=== PATIENT | male | born 1955 | race African-American/Black ===

== ENCOUNTER 2017-12-31 14:56 | Outpatient (REF) | payer MEDICARE, MEDICAID, SELFPAY ==
[2017-12-31 21:31] LABS: ALT 28 U/L (12-78); BUN 10 mg/dL (7-18); CREATININE 0.94 mg/dL (0.70-1.30); Calcium 8.7 mg/dL (8.5-10.1); Chloride 103 mmol/L (98-107); Glucose 87 mg/dL (70-100); LDL CHOLESTEROL 39 mg/dL (<100); Sodium 135 mmol/L (136-145)
== END 2017-12-31 15:16 ==
LOC: NCHCN 14:56
PROVIDERS: PCP Internal Medicine; Referring Provider Internal Medicine; Visit Provider Internal Medicine
DX: M18.12 Unilateral primary osteoarthritis of first carpometacarpal joint, left hand (principal); E11.9 Type 2 diabetes mellitus without complications; M54.30 Sciatica, unspecified side; I10 Essential (primary) hypertension
CPT/HCPCS: 80048; 83721; 84460

== ENCOUNTER → 2018-04-01 11:29 | Outpatient (BNVA) | payer MEDICARE, SELFPAY | PROVIDERS: PCP Internal Medicine; Visit Provider Student in an Organized Health Care Education/Training Program | DX: I25.10 Atherosclerotic heart disease of native coronary artery without angina pectoris (principal); E11.51 Type 2 diabetes mellitus with diabetic peripheral angiopathy without gangrene; Z79.84 Long term (current) use of oral hypoglycemic drugs; I10 Essential (primary) hypertension | CPT/HCPCS: 99214 ==

== ENCOUNTER 2018-09-09 15:57 | Emergency (ER) | payer MEDICARE, SELFPAY ==
[2018-09-09 16:08] VITALS: BP 150/80; PULSE 101; RESP 18; TEMP 36.4; O2SAT 94
--- NOTE | 2018-09-09 16:37 | ED.GENADUL_ITS ---
Discharge Plan Disposition Patient Disposition: HOME Condition: Good Discharge Details Chief Complaint: Laceration Clinical Impression: Finger laceration Primary Care Provider: Ty Lynn ED Provider: Amaris Perez Home Meds and New Rx's Prescriptions: Continued Trulicity 0.75 mg/0.5 mL pen injector 0.75 mg SC QWEEK RF: 0 sildenafil [Viagra] 50 MG tablet 50 mg PO PRN PRNRF: 0 nitroglycerin 0.4 MG tablet, sublingual 0.4 mg Sublingual PRN PRNRF: 0 rosuvastatin [Crestor] 10 MG tablet 20 mg PO DAILY Qty: 30 RF: 0 metformin 500 mg tablet 850 mg PO BID RF: 0 amlodipine 10 mg tablet 10 mg PO DAILY RF: 0 glimepiride 4 MG tablet 1 tab PO DAILY RF: 0 aspirin [Aspir-81] 81 MG tablet,delayed release (DR/EC) 81 mg PO DAILY RF: 0 Lyrica 25 mg capsule 40 mg PO DAILY RF: 0 metoprolol tartrate 25 mg Tablet RF: 0 Discharge Instructions Instructions: Finger Laceration (ED), Skin Adhesive Care (ED) Additional Instructions: Keep wound clean, dry, covered. Tylenol and/or Ibuprofen as needed for discomfort. Monitor for signs of infection including redness, warmth, drainage, increased pain, fevers/chills. If these or other new / worsening symptoms arise please seek care urgently once again. Referrals: Ty Lynn [Primary Care Provider] - Discharge Data Discharge Date/Time-TO BE ENTERED AT DEPARTURE: 09/09/18 16:48 Medical Decision Making Patient 63 year old LHD male presenting today for evaluation of laceration to right thumb. Patient has superficial flap laceration sustained from knife while trying to cut head off of fish. UTD on tetanus, patietn reports 5 years ago. No sensation deficits. Does not impede joint, laceration distal to ulnar edge of nail. Wound was washed by nursing staff upon his arrival. Cleansed further by myself with chlorohexidine and sterile saline. No FB or debris noted. discussed closure options. As the edges lay so well approximated, discussed closure with adhesive. Discussed risks/benefits, care of adhesivie. He voices understanding and wishes to proceed. Discussed wound care in depth. Discussed sxs of infection and when to tseek care urgently once again. All questions and concerns were addressed, advised f/u with PCP as needed. HPI General Mode of arrival: ambulatory . Date/Time Provider Initiated Documentation: 09/09/18 16:10 . Limitations to Documentation: no limitations . Information obtained by: patient, family and RN notes reviewed . History of Present Illness 63 year old M presents to the emergency department with the chief complaint of laceration ulnar side right thumb, described as mild, Quality is described as burning, and is localized to the left and upper extremity. Patient reports no radiation. Patient started experiencing this minute(s) and it has been constant. Immobilization improves symptom(s), Movement worsens symptoms . Patient notes no other symptoms.. Patient did receive the following treatments prior to arrival, none Related Data Home Medications Medication Instructions Recorded Confirmed nitroglycerin 0.4 mg SUBLINGUAL PRN PRN 12/13/13 09/09/18 sildenafil [Viagra] 50 mg PO PRN PRN 12/13/13 09/09/18 glimepiride 1 tab PO DAILY 05/30/14 09/09/18 aspirin [Aspir-81] 81 mg PO DAILY 05/25/15 09/09/18 rosuvastatin [Crestor] 20 mg PO DAILY #30 tab 10/09/16 09/09/18 amlodipine 10 mg tablet 10 mg PO DAILY 04/01/18 09/09/18 dulaglutide 0.75 mg/0.5 mL 0.75 mg SC QWEEK 04/01/18 09/09/18 subcutaneous pen injector metformin 500 mg tablet 850 mg PO BID tab-cap 04/01/18 09/09/18 pregabalin 25 mg capsule 40 mg PO DAILY cap 04/01/18 09/09/18 metoprolol tartrate 09/09/18 Allergies Allergy/AdvReac Type Severity Reaction Status Date / Time No Known Allergies Allergy Unverified 04/01/18 11:47 General Stated Complaint: Laceration MIKKI: 4 Review of Systems Constitutional Reports as per HPI, Denies chills and Denies fever(s) Musculoskeletal Reports as per HPI Integumentary/Breasts Reports as per HPI Neurologic Reports as per HPI, Denies sensory deficit and Denies paresthesias PFSH Social History Smoking/Tobacco Use Status: Former Tobacco Use Alcohol Intake: never Drug use: Never Substance use type: does not use Do you feel safe at home: Yes Do you feel safe in your relationship?: Yes Exam Const General: cooperative, healthy appearing, comfortable, no acute distress and well developed Nutritional Appearance: average body habitus and well nourished Orientation: alert and awake Resp Effort & Inspection: normal respiratory effort, able to speak in complete sentences and no respiratory distress Cardio Rate: regular rate Rhythm: regular rhythm Skin Trauma: laceration (superficial flap laceration, well approximated, 8mm long right thumb) Neuro General: alert and awake Cognition: normal cognition Speech: speech normal Gait: normal gait Sensory Exam: no sensory deficits noted Extrem Right upper extremity: abnormal to inspection (superficial laceration as above along ulnar side thumb distal to nail) Psych Appearance: grossly normal and well kempt Mental Status: mental status grossly normal Speech and Movement: speech and movement normal Course Vital Signs Temperature 36.4 C 09/09/18 16:08 Pulse 101 H 09/09/18 16:08 Respiratory Rate 18 09/09/18 16:08 Blood Pressure 150/80 H 09/09/18 16:08 Pulse Oximetry 94 L 09/09/18 16:08 Temperature 36.4 C 09/09/18 16:08 Temperature Source Temporal Artery Scan 09/09/18 16:08 Pulse 101 H 09/09/18 16:08 Respiratory Rate 18 09/09/18 16:08 Blood Pressure 150/80 H 09/09/18 16:08 Pulse Oximetry 94 L 09/09/18 16:08 Oxygen Delivery Method Room Air 09/09/18 16:08 Oxygen Flow Rate 0 09/09/18 16:08 Procedures Laceration Laceration 1: Site: hand Side (If applicable): right Size (cm): 0.8 Description: flap Depth: simple, single layer Pre-repair: wound explored, irrigated extensively and deep structures intact Technique: other (thin layer of adhesive applied)
[2018-09-09 16:51] VITALS: BP 150/80; PULSE 101; RESP 18; O2SAT 94
== END 2018-09-09 16:48 | disposition home or self-care (01) ==
LOC: ER 16:40
PROVIDERS: Emergency Provider Physician Assistant; PCP Internal Medicine
DX: S61.011A Laceration without foreign body of right thumb without damage to nail, initial encounter (principal); W26.0XXA Contact with knife, initial encounter
CPT/HCPCS: 12001

== ENCOUNTER 2018-11-09 18:58 | Outpatient (REF) | payer MEDICARE, MEDICAID, SELFPAY ==
[2018-11-09 19:19] LABS: COMMENT (LAB VIEW ONLY) 50.86 mg/dL; Microalb ug/mg Crea 69.4 ug/mg Cr
== END 2018-11-09 19:18 ==
LOC: NCHCN 18:58
PROVIDERS: PCP Internal Medicine; Visit Provider Internal Medicine
DX: E11.9 Type 2 diabetes mellitus without complications (principal)
CPT/HCPCS: 82043; 82570

== ENCOUNTER 2019-02-01 12:05 | Outpatient (REF) | payer MEDICARE, SELFPAY ==
[2019-02-01 19:41] LABS: ALT 23 U/L (16-63); Anion Gap 11.6 mmol/L (3-11); BUN 13 mg/dL (7-18); CO2 26.4 mmol/L (21.0-32.0); CREATININE 0.93 mg/dL (0.70-1.30); Calcium 9.6 mg/dL (8.5-10.1); Chloride 101 mmol/L (98-107); Glucose 97 mg/dL (70-100); LDL CHOLESTEROL 37 mg/dL (<100); Potassium 4.4 mmol/L (3.5-5.1); Sodium 139 mmol/L (136-145)
== END 2019-02-01 12:25 ==
LOC: NCHCN 12:05
PROVIDERS: PCP Internal Medicine; Visit Provider Internal Medicine
DX: I10 Essential (primary) hypertension (principal); E78.5 Hyperlipidemia, unspecified
CPT/HCPCS: 80048; 83721; 84460

== ENCOUNTER → 2019-04-06 08:37 | Outpatient (BNVA) | payer MEDICARE, SELFPAY | PROVIDERS: PCP Internal Medicine; Referring Provider Internal Medicine; Visit Provider Internal Medicine Cardiovascular Disease | DX: I25.10 Atherosclerotic heart disease of native coronary artery without angina pectoris (principal); R07.9 Chest pain, unspecified; I10 Essential (primary) hypertension; I73.9 Peripheral vascular disease, unspecified | CPT/HCPCS: 99204; 99215 ==

== ENCOUNTER 2019-04-08 00:21 | Outpatient (CLI) | payer MEDICARE, SELFPAY ==
--- NOTE | 2019-04-08 11:05 | DI.NM_ITS ---
APPROVED REPORT Exam: Exercise Treadmill Patient Location: Out-Patient Room/Bed: Stress Nurse: Brittany Sepulveda RN BMI: 32.41 Baseline Rhythm: Sinus Rhythm Indications: Patient reports on and off midsternal chest tightness with tingling of left arm and hand that happens at rest. He may take one to two tabs of nitro SL for the discomfort to go away. He states these episodes may happen one to two times per month. He had 2 stents placed in May. Medical History Medical History: CAD s/p stent, Diabetes, HTN, Hyperlipidemia, Endarterectomy, Femoral /Popliteal byp ass. Cardiac Medications: Aspirin, Amlodipine, Carvedilol, Lisinopril, Rosuvastatin/ Crestor Allergies: No known drug allergies Cardiac Risk Factors: FHX of CAD, HTN, Hyperlipidemia, PVD, Diabetes (insulin) Pretest Chest Pain Characteristics: No chest pain Exercise History: Physically active Physical Disabilities: Hips Lung Sounds: Clear to auscultation Heart Sounds: Regular Stress Test Details Test: Exercise stress testing was performed using a Jimi protocol. Nuclear Acquisition: Stress Tc-99m/Stress Tc-99m 1 day Rest Isotope: Tc-99m Sestamibi. Dose: 14.5 Date: 04/08/2019 Injection Time: 1000 Stress Isotope: Tc-99m Sestamibi. Dose: 44.9 Date: 04/08/2019 Injection Time: 1215 HR Max Heart Rate (APMHR): 158 bpm Resting HR Supine: 78 bpm Target HR (85% APMHR): 134 bpm Resting HR Standin bpm Max HR Achieved: 140 bpm % of APMHR: 88 HR response to stress: Normal HR response to stress BP Resting BP Supine: 138/74 mmHg Resting BP Standin/78 mmHg Max BP: 200/70 mmHg BP response to stress: Normal blood pressure response to stress. ECG Resting ECG: Sinus Rhythm ST Change: none Ectopy: none Stress ECG: Sinus Tachycardia ST Change: none Arrhythmia: none Recovery ECG: Sinus Rhythm Recovery ST Change: none Clinical Reason for Termination: Bilateral Hip Pain Stress Symptoms: None Exercise duration: 7 min34 sec Highest Stage Achieved: Stage 3: 3.4 mph at 14% grade. Exercise capacity: 9.49 METs Functional Capacity: Mildly deminished capacity Stress ECG Conclusion 1. Patient exercised for 7 minutes 34 seconds (9.5 METS) 2. Test was stopped due to bilateral hip pain 3. There is no evidence of ischemia on the ECG portion of this exam Protocol Used: Jimi Protocol Stress Test Summary STAGE Time (mins) Speed (mph) Grade (%) HR BP SYMPTOMS METS Supine 78 138/74 Standing 82 146/78 1 3 1.7 10 109 150/70 4.6 2 6 2.5 12 121 180/98 7 3 9 3.4 14 10.2 4 12 4.2 16 12.9 5 15 5.0 18 17.2 1 min recovery 138 200/70 3 min recovery 95 186/74 6 min recovery 90 160/76 9 min recovery 88 150/80 MPI Conclusion Ejection fraction with stress was normal without wall motion abnormalities. There is no evidence of ischemia on the imaging portion of this exam. This represents a normal SPECT stress test.
[2019-04-08] MEDS: Regadenoson 0.4 MG/5 ML SYR IVP (12:41)
== END 2019-04-08 00:41 ==
PROVIDERS: PCP Internal Medicine; Visit Provider Internal Medicine Cardiovascular Disease
DX: R07.9 Chest pain, unspecified (principal); I25.10 Atherosclerotic heart disease of native coronary artery without angina pectoris; I10 Essential (primary) hypertension; E78.5 Hyperlipidemia, unspecified; E11.9 Type 2 diabetes mellitus without complications; Z79.4 Long term (current) use of insulin; Z82.49 Family history of ischemic heart disease and other diseases of the circulatory system; Z95.5 Presence of coronary angioplasty implant and graft
CPT/HCPCS: 78452; 93016; 93018; 93017; J2785

== ENCOUNTER → 2019-09-14 14:51 | Outpatient (BNVA) | payer MEDICARE, SELFPAY | PROVIDERS: PCP Internal Medicine; Referring Provider Internal Medicine; Visit Provider Internal Medicine Cardiovascular Disease | DX: I25.10 Atherosclerotic heart disease of native coronary artery without angina pectoris (principal); I10 Essential (primary) hypertension; I73.9 Peripheral vascular disease, unspecified | CPT/HCPCS: 99214; 99442 ==

== ENCOUNTER 2019-12-22 16:37 | Outpatient (REF) | payer MEDICARE, SELFPAY | END 2019-12-22 16:57 | LOC: NCHCN 16:37 | PROVIDERS: PCP Internal Medicine; Visit Provider Internal Medicine | DX: E11.9 Type 2 diabetes mellitus without complications (principal) | CPT/HCPCS: 82043; 82570 ==

== ENCOUNTER 2020-03-20 19:08 | Outpatient (REF) | payer MEDICARE, SELFPAY ==
[2020-03-20 20:14] LABS: ALT 27 U/L (16-63); Anion Gap 7.2 mmol/L (3-11); BUN 13 mg/dL (7-18); CO2 27.8 mmol/L (21.0-32.0); CREATININE 0.93 mg/dL (0.70-1.30); Calcium 9.3 mg/dL (8.5-10.1); Chloride 103 mmol/L (98-107); Glucose 84 mg/dL (74-106); LDL CHOLESTEROL 40 mg/dL (<100); Potassium 3.6 mmol/L (3.5-5.1); Sodium 138 mmol/L (136-145)
== END 2020-03-20 19:28 ==
LOC: NCHCN 19:08
PROVIDERS: PCP Internal Medicine; Visit Provider Internal Medicine
DX: E11.9 Type 2 diabetes mellitus without complications (principal); I10 Essential (primary) hypertension; E78.5 Hyperlipidemia, unspecified; Z98.61 Coronary angioplasty status; I25.10 Atherosclerotic heart disease of native coronary artery without angina pectoris
CPT/HCPCS: 80048; 83721; 84460

== ENCOUNTER 2020-11-08 09:21 | Inpatient (IN) | payer OTHER, SELFPAY ==
[2020-11-08] VITALS (94 sets, daily range): BP systolic 95–157; BP diastolic 44–85; PULSE 70–93; RESP 11–27; TEMP 36.3–36.7; O2SAT 88–100
--- NOTE | 2020-11-08 09:15 | RT.EKG_ITS ---
APPROVED REPORT Exam: Resting ECG Reason for Exam: chest pain Patient Location: E HR:75 bpm ECG Measurements Heart Rate 75 AXIS ID 236 P 12 QRSd 110 QRS 32 QT 392 T 32 QTc 439 Conclusion Sinus rhythm...normal P axis, V-rate 60- 99 Prolonged ID interval...ID >220, V-rate 50- 90
--- NOTE | 2020-11-08 09:30 | DI.RAD_ITS ---
Exam(s) XR CHEST 2V PA LATERAL EXAM: XR CHEST 2V PA LATERAL CLINICAL HISTORY: chest pain. TECHNIQUE: 2D digital imaging was performed. COMPARISON: Prior chest x-ray May 2014 FINDINGS: Heart size is normal. The mediastinum is not widened. Lungs are clear. No infiltrates nor pleural effusions. IMPRESSION: No acute pulmonary findings. DATA REPOSITORY: RADIATION DOSE DELIVERED:
[2020-11-08] MEDS: Aspirin 81 MG CHEW 324 MG CH (09:41)
[2020-11-08 09:48] LABS: Abs Immature Grans 0.01 10^3/uL (0.0-0.06); Absolute Basophil Count 0.02 10^3/uL (0.0-0.2); Absolute Eosinophil Count 0.12 10^3/uL (0.0-0.7); Absolute Lymphocyte Count 2.51 10^3/uL (1.2-3.4); Absolute Monocyte Count 0.62 10^3/uL (0.1-0.8); Absolute Neutrophil Count 6.47 10^3/uL (1.2-6.7); Basophils % 0.2; Eosinophils % 1.2; HCT 43.8 % (40.0-50.0); HGB 15.1 g/dL (13.5-17.5); Immature Grans % 0.1; Lymphocytes % 25.7; MCH 29.7 pg (27.0-33.0); MCHC 34.5 % (32.0-36.0); MCV 86.1 fL (80-95); MPV 10.7 fL (8.0-11.0); Monocytes % 6.4; Neutrophils % 66.4; Nucleated RBC 0 %; Platelet Count 273 10^3/uL (130-400); RBC 5.09 10^6/uL (4.36-5.78); RDW 14.5 % (11.8-14.1); WBC 9.75 10^3/uL (4.4-10.8)
--- NOTE | 2020-11-08 09:56 | W.ED.GENAD ---
Discharge Plan Disposition Patient Disposition: [facility] INPATIENT Condition: Serious Discharge Details Clinical Impression: Chest pain Primary Care Provider: Ty Lynn ED Provider: Scar Sifuentes Home Meds and New Rx's Prescriptions: No Action Trulicity 0.75 mg/0.5 mL pen injector 1.5 mg SC QWEEK RF: 0 metformin 850 mg tablet 1,600 mg PO DAILY RF: 0 hydrocodone bitartrate 10 mg capsule, oral only, ER 12hr 10 mg PO TID PRNRF: 0 carvedilol 25 mg tablet 25 mg PO BID Qty: 180 RF: 6 sildenafil [Viagra] 50 MG tablet 100 mg PO PRN PRNRF: 0 nitroglycerin 0.4 MG tablet, sublingual 0.4 mg Sublingual PRN PRNRF: 0 rosuvastatin [Crestor] 10 MG tablet 40 mg PO DAILY Qty: 30 RF: 0 amlodipine 10 mg tablet 10 mg PO DAILY RF: 0 glimepiride 4 MG tablet 1 tab PO DAILY RF: 0 chlorthalidone 25 mg tablet 50 mg PO DAILY RF: 0 losartan 100 mg Tablet 100 mg PO DAILY RF: 0 Levemir FlexTouch U-100 Insuln 100 unit/mL (3 mL) Insulin Pen 90 unit SUBCUT TID RF: 0 Narcan 4 mg/actuation [place],Non-Aerosol 1 spray INTRANASAL PRN PRNRF: 0 Medical Decision Making This is a 65-year-old gentleman, history of CAD, hypertension, hypercholesteremia, diabetes, PAD, PVD, history of coronary stent x2, fem-pop bypass presenting complaining of sharp, severe substernal chest pain rating to his left arm after walking nearly 2 miles this morning around 3 AM on a treadmill. Patient took a total of 3 nitro, pain is now dull 2 out of 10 substernal, no more radiation. Patient has concerning presentation, will give full dose aspirin, obtain cardiac work-up including D-dimer, and give 4 mg IV morphine. Differential includes but not excluded to ACS, angina, PE, dissection, pneumonia, costochondritis, etc. Patient reports that his pain is a 1 out of 10 with IV morphine. Initial laboratory values are unremarkable for obvious emergent process. Awaiting a D-dimer. Upon reevaluation patient reports his pain is now a 4 out of 10, will initiate a nitro drip D-dimer elevated at 867, after discussing concerns of PE versus aneurysm with radiologist, will obtain CTA chest, abdomen, pelvis Patient reports that he is now pain-free with the nitro drip at 5/h. I discussed the case with Dr. Lee, cardiology, at [place]. She recommends continuing the nitro to keep the patient pain-free, does not recommend initiating a heparin bolus or drip. Patient is already on Crestor and a beta-david. Has had a full dose of aspirin. Only additional recommendations at this time is if we are able to get an echo prior to transfer. Department is at capacity currently and cannot accept now, recommends admitting to our facility but they report they should be able to accept care of the patient tomorrow into the care of Dr. Powell Case discussed with our hospitalist team, Dr. Little, made him aware of the CTA of chest, abdomen, pelvis, work-up here in the ER, and anticipated transfer to [place] tomorrow. Patient will be admitted to our ICU on a nitro drip. Patient does report pain is starting to return, nitro drip now at 10/h. Patient once again pain-free. Repeat troponin remains less than 0.05 Medical Records Medical records reviewed: Yes I reviewed the patient's medical records. Imaging Data Radiologic Study: Attestation: I personally reviewed and interpreted this imaging study as follows: Imaging: X-Ray My impression: XR CHEST 2V PA LATERAL CLINICAL HISTORY [ chest pain. ] [] TECHNIQUE 2D digital imaging was performed. COMPARISON [Prior chest x-ray May 2014] [] FINDINGS [Heart size is normal. The mediastinum is not widened.] [Lungs are clear. No infiltrates nor pleural effusions.] [] IMPRESSION [No acute pulmonary findings Radiologist's impression: Laboratory Tests Range/Units 11/08/20 11/08/20 09:29 09:29 WBC (4.4-10.8) 10^3/uL 9.75 RBC (4.36-5.78) 10^6/uL 5.09 Hgb (13.5-17.5) g/dL 15.1 Hct (40.0-50.0) % 43.8 MCV (80-95) fL 86.1 MCH (27.0-33.0) pg 29.7 MCHC (32.0-36.0) % 34.5 RDW (11.8-14.1) % 14.5 H Plt Count (130-400) 10^3/uL 273 MPV (8.0-11.0) fL 10.7 Immature Gran % 0.1 Neutrophils % 66.4 Lymphocytes % 25.7 Monocytes % 6.4 Eosinophils % 1.2 Basophils % 0.2 Nucleated RBC % % 0 Absolute Neutrophils (1.2-6.7) 10^3/uL 6.47 Absolute Lymphocytes (1.2-3.4) 10^3/uL 2.51 Absolute Monocytes (0.1-0.8) 10^3/uL 0.62 Absolute Eosinophils (0.0-0.7) 10^3/uL 0.12 Absolute Basophils (0.0-0.2) 10^3/uL 0.02 Sodium (136-145) mmol/L 137 Potassium (3.5-5.1) mmol/L 3.6 Chloride (98-107) mmol/L 101 Carbon Dioxide (21.0-32.0) mmol/L 29.5 Anion Gap (3-11) mmol/L 6.5 BUN (7-18) mg/dL 16 Creatinine (0.70-1.30) mg/dL 0.8 Estimated GFR/1.73 m2 (mL/min/1.73m2) >= 60.00 Glucose (74-106) mg/dL 118 H Calcium (8.5-10.1) mg/dL 9.0 Magnesium (1.8-2.4) mg/dL 1.9 Total Bilirubin (0.2-1.0) mg/dL 0.6 AST (15-37) U/L 14 L ALT (16-63) U/L 29 Alkaline Phosphatase (46-116) U/L 68 Troponin I (<0.06) ng/mL < 0.05 Total Protein (6.4-8.2) g/dL 8.2 Albumin (3.4-5.0) g/dL 4.3 Radiologic Study #2: Attestation: I personally reviewed and interpreted this imaging study as follows: Imaging: CT Scan Radiologist's impression: CT CHEST PE ABD PELVIS W CLINICAL HISTORY [ pain, elevated dimer. ] [] TECHNIQUE Imaging Protocol: Axial CT angiography was performed with multi-slice acquisition and multi-planar and/or 3D reconstructions. CONTRAST MATERIAL Intravenous: Omnipaque 350 Contrast volume:[125] Oral: [None] COMPARISON [CT CHEST FOR PULMONARY EMBOLUS from 05/18/2016][] FINDINGS CHEST: PULMONARY ARTERIES: [There are no intra-arterial filling defects to suggest the presence of acute pulmonary emboli.] LUNGS: [There is no evidence of pulmonary infarction].[No confluent infiltrates. No ominous nodules in either lung field] [there are no pleural effusions.][No significant focal findings in the trachea and mainstem bronchi.] MEDIASTINUM: [There is no hilar nor mediastinal adenopathy.] [Visualized thyroid unremarkable.][] CARDIAC: [Heart size is normal. There is no pericardial effusion. There is no significant shift of the interventricular septum.][Caliber of the thoracic aorta is within normal limits.] Left vertebral artery is noted to originate is an independent vessel off the aortic arch just proximal to the left subclavian takeoff point. Diameter of the ascending thoracic aorta is within normal limits. There is no evidence of aortic dissection. There is mild fusiform infrarenal abdominal aortic aneurysm with maximum diameter of 2.5 cm.. No high-grade stenosis at the origin of the celiac and superior mesenteric arteries and the inferior mesenteric artery is also noted to be patent. no evidence of significant stenosis in the solitary bilateral renal arteries and both kidneys exhibit normal size. no high-grade stenosis at the aortic bifurcation. there is fusiform dilatation of the distal left common iliac artery which exhibits maximum diameter of 1.9 cm. external iliac arteries are calcified with moderate atherosclerotic involvement. no aneurysms in these vessels. however, there is mild dilatation of the left common femoral artery which exhibits maximum luminal diameter of 1.6 cm at the level of the femoral head. the opposite-right common femoral artery exhibits a luminal diameter of 1.3 cm. IN THE LEFT INFRA INGUINAL REGION THERE IS WHAT APPEARS TO BE A GRAFT. THIS DOES NOT EXHIBIT FLOW THEREIN. PROBABLY OCCLUDED. OSSEOUS: [No significant osseous lesions.][]. ABDOMEN: [There is no ascites.] LIVER: [There are no focal hepatic lesions nor dilatation of intrahepatic ducts.] [] GALLBLADDER/BILIARY: [The gallbladder is surgically absent.] [CBD is not dilated.] PANCREAS: [There is a calcification within the pancreatic head measuring 9 x 10 millimeters. This is either within or immediately adjacent to the CBD at this level. In addition, there is a 2.7 x 1.6 cm hypodensity in the uncinate process of the pancreas which is suspicious for possible neoplasm. There is no encasement of the adjacent superior mesenteric artery and vein. Pancreatic duct is not dilated. There is also suggestion of a 1 cm cystic structure in the extreme pancreatic tail just medial to the spleen. Possibly significant. SPLEEN: [Spleen is not enlarged. There are no intrasplenic lesions.] ADRENALS: [There are no significant adrenal masses.] KIDNEYS:[No cysts evident.] [No calculi nor hydronephrosis. No solid renal masses]. ABDOMINAL AORTA: [As described above there is mild fusiform dilatation of the infrarenal abdominal aorta which exhibits maximum diameter of 2.5 cm.] LYMPH NODES: [There is no retroperitoneal or para-aortic adenopathy.] ABDOMINAL WALL/GI: [No evidence of significant anterior abdominal wall hernia.] [No bowel obstruction.] [There are no obvious ischemic appearing bowel loops.] PELVIS: LYMPH NODES: [There is no intrapelvic nor inguinal adenopathy.] GI: [No evidence of appendicitis.][No evidence of sigmoid diverticulitis.][] URINARY BLADDER: [No calculi nor masses evident] REPRODUCTIVE: [Enlarged prostate gland.. No obturator adenopathy evident.] OSSEOUS: [No significant osseous lesions.] [] IMPRESSION 1. [No evidence of acute pulmonary emboli nor pulmonary infarction.] 2. [No focal pulmonary findings and no pleural effusions nor intrathoracic adenopathy][] 3. [No evidence of aortic dissection. Mild infrarenal abdominal aortic aneurysm with maximum diameter 2.5 cm. 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 No tight stenosis nor dissection at this level nor elsewhere in the aortoiliac segments. Left common femoral artery also exhibits some dilatation, as described above. There is an occluded left fem-distal arterial graft seen on the lower most images] of this study. 4. [Suspicion for possible neoplasm here in the uncinate process of the pancreas. Respiratory motion artifact prevents accurate assessment of this area on this study and this require more dedicated study abdominal-pancreatic protocol.] There is no obvious regional adenopathy and there is no encasement of the adjacent superior mesenteric vessels. [All findings above were discussed by myself with emergency room provider.] Lab Data Lab results reviewed: Yes I reviewed the patient's lab results. Labs: Laboratory Tests Range/Units 11/08/20 11/08/20 11/08/20 09:29 09:29 11:05 WBC (4.4-10.8) 10^3/uL 9.75 RBC (4.36-5.78) 10^6/uL 5.09 Hgb (13.5-17.5) g/dL 15.1 Hct (40.0-50.0) % 43.8 MCV (80-95) fL 86.1 MCH (27.0-33.0) pg 29.7 MCHC (32.0-36.0) % 34.5 RDW (11.8-14.1) % 14.5 H Plt Count (130-400) 10^3/uL 273 MPV (8.0-11.0) fL 10.7 Immature Gran % 0.1 Neutrophils % 66.4 Lymphocytes % 25.7 Monocytes % 6.4 Eosinophils % 1.2 Basophils % 0.2 Nucleated RBC % % 0 Absolute Neutrophils (1.2-6.7) 10^3/uL 6.47 Absolute Lymphocytes (1.2-3.4) 10^3/uL 2.51 Absolute Monocytes (0.1-0.8) 10^3/uL 0.62 Absolute Eosinophils (0.0-0.7) 10^3/uL 0.12 Absolute Basophils (0.0-0.2) 10^3/uL 0.02 PT (9.3-11.0) sec 10.2 INR (0.9-1.1) 1.0 APTT (21.0-27.5) sec 24.7 D-Dimer (<500) ng/mlFEU 867 H Sodium (136-145) mmol/L 137 Potassium (3.5-5.1) mmol/L 3.6 Chloride (98-107) mmol/L 101 Carbon Dioxide (21.0-32.0) mmol/L 29.5 Anion Gap (3-11) mmol/L 6.5 BUN (7-18) mg/dL 16 Creatinine (0.70-1.30) mg/dL 0.8 Estimated GFR/1.73 m2 (mL/min/1.73m2) >= 60.00 Glucose (74-106) mg/dL 118 H Calcium (8.5-10.1) mg/dL 9.0 Magnesium (1.8-2.4) mg/dL 1.9 Total Bilirubin (0.2-1.0) mg/dL 0.6 AST (15-37) U/L 14 L ALT (16-63) U/L 29 Alkaline Phosphatase (46-116) U/L 68 Troponin I (<0.06) ng/mL < 0.05 Total Protein (6.4-8.2) g/dL 8.2 Albumin (3.4-5.0) g/dL 4.3 COVID-19 Source Range/Units 11/08/20 11/08/20 12:38 13:06 WBC (4.4-10.8) 10^3/uL RBC (4.36-5.78) 10^6/uL Hgb (13.5-17.5) g/dL Hct (40.0-50.0) % MCV (80-95) fL MCH (27.0-33.0) pg MCHC (32.0-36.0) % RDW (11.8-14.1) % Plt Count (130-400) 10^3/uL MPV (8.0-11.0) fL Immature Gran % Neutrophils % Lymphocytes % Monocytes % Eosinophils % Basophils % Nucleated RBC % % Absolute Neutrophils (1.2-6.7) 10^3/uL Absolute Lymphocytes (1.2-3.4) 10^3/uL Absolute Monocytes (0.1-0.8) 10^3/uL Absolute Eosinophils (0.0-0.7) 10^3/uL Absolute Basophils (0.0-0.2) 10^3/uL PT (9.3-11.0) sec INR (0.9-1.1) APTT (21.0-27.5) sec D-Dimer (<500) ng/mlFEU Sodium (136-145) mmol/L Potassium (3.5-5.1) mmol/L Chloride (98-107) mmol/L Carbon Dioxide (21.0-32.0) mmol/L Anion Gap (3-11) mmol/L BUN (7-18) mg/dL Creatinine (0.70-1.30) mg/dL Estimated GFR/1.73 m2 (mL/min/1.73m2) Glucose (74-106) mg/dL Calcium (8.5-10.1) mg/dL Magnesium (1.8-2.4) mg/dL Total Bilirubin (0.2-1.0) mg/dL AST (15-37) U/L ALT (16-63) U/L Alkaline Phosphatase (46-116) U/L Troponin I (<0.06) ng/mL < 0.05 Total Protein (6.4-8.2) g/dL Albumin (3.4-5.0) g/dL COVID-19 Source Nasal/Nares ECG Data Attestation: I personally reviewed and interpreted this ECG (s) as follows: Interpretation: Please see official report by Dr. Sarmiento. Sinus rhythm, ventricular rate of 75. Prolonged IL interval, no STEMI HPI General Mode of arrival: ambulatory. Date/Time Provider Initiated Documentation: 11/08/20 09:22. Limitations to Documentation: no limitations. Information obtained by: patient. HPI Narrative: This is a 65-year-old gentleman, past medical history of CAD, diabetes, hyperlipidemia, hypertension, lumbar go with sciatica, PAD, PVD, unstable angina, cardiac stent x2, fem-pop bypass left leg, presenting to the ER for evaluation of substernal chest pain that radiates down his left arm. Patient states that he was walking on his treadmill like he typically does around 3 AM this morning, soon after walking a couple of miles he developed what he describes as 10 out of 10 substernal chest pain that radiated down his entire left arm. Subsequently over the next hour or so he took a total of 3 sublingual nitro and reports now his pain is a dull ache, 1 or 2 out of 10. It no longer radiates down his arm. Patient denies recent illness or trauma. He denies any other concerns or complaints at this time. Denies any other radiation of his discomfort. Denies headache, neck pain, shortness of breath, numbness, tingling, weakness in his legs. Patient states he does not typically take his nitro, has not taken for at least 1 year Related Data Home Medications Medication Instructions Recorded Confirmed nitroglycerin 0.4 mg SUBLINGUAL PRN PRN 12/13/13 11/08/20 sildenafil [Viagra] 100 mg PO PRN PRN 12/13/13 11/08/20 glimepiride 1 tab PO DAILY 05/30/14 11/08/20 rosuvastatin [Crestor] 40 mg PO DAILY #30 tab 10/09/16 11/08/20 amlodipine 10 mg tablet 10 mg PO DAILY 04/01/18 11/08/20 dulaglutide 0.75 mg/0.5 mL 1.5 mg SC QWEEK 04/01/18 11/08/20 subcutaneous pen injector carvedilol 25 mg tablet 25 mg PO BID #180 tab 04/06/19 11/08/20 hydrocodone bitartrate 10 mg 10 mg PO TID PRN cap 04/06/19 11/08/20 capsule, oral only, extended rel 12 hr metformin 850 mg tablet 1,600 mg PO DAILY tab 04/06/19 11/08/20 chlorthalidone 50 mg PO DAILY 11/08/20 11/08/20 insulin detemir U-100 [Levemir 90 unit SUBCUT TID 11/08/20 11/08/20 FlexTouch U-100 Insuln] losartan 100 mg PO DAILY 11/08/20 11/08/20 naloxone [Narcan] 1 spray INTRANASAL PRN PRN 11/08/20 11/08/20 Previous Rx's Medication Instructions Recorded carvedilol 25 mg tablet 25 mg PO BID #180 tab 04/06/19 Allergies Allergy/AdvReac Type Severity Reaction Status Date / Time No Known Allergies Allergy Unverified 09/14/19 14:17 General Stated Complaint: Chest Pain MIKKI: 2 Review of Systems Constitutional Constitutional: Denies fatigue, Denies fever(s), Denies headache(s) and Denies weakness Eyes Eyes: Denies change in vision ENT Ears, Nose, Mouth, and Throat: Denies headache(s) and Denies neck pain Cardiovascular Cardiovascular: Reports chest pain and Denies dyspnea Respiratory Respiratory: Denies cough and Denies dyspnea Gastrointestinal Gastrointestinal: Denies abdominal pain, Denies nausea and Denies vomiting Musculoskeletal Musculoskeletal: Reports back pain (Chronic sciatica) and Denies neck pain Integumentary/Breasts Skin/Breast: Denies rash Neurologic Neurologic: Denies headache(s) and Denies weakness Endocrine Endocrine: Denies fatigue Hematologic/Lymphatic Hematologic/Lymphatic: Denies easy bleeding and Denies easy bruising PFSH Medical History CAD (coronary artery disease) Chest pain Diabetes mellitus Diabetic neuropathy Erectile dysfunction HLD (hyperlipidemia) HTN (hypertension) Lumbago with sciatica, left side PAD (peripheral artery disease) PVD (peripheral vascular disease) Unstable angina Surgical History H/O heart artery stent (~05/2016) MATTHEW to RCA x 2 History of cholecystectomy Hx of endarterectomy (~1998) left common femoral S/P femoral-popliteal bypass surgery S/P right rotator cuff repair Social History Smoking/Tobacco Use Status: Former Tobacco Use Pack-years: 20 Smoking risk assessment performed?: Yes Alcohol Intake: never Drug use: Never Substance use type: does not use What type of physical activity do you participate in: walking and additional Details: walks 2-3 miles every other day Frequency: 3-4 times per week Do you feel safe at home: Yes Do you feel safe in your relationship?: Yes Exam Const General: cooperative and no acute distress Orientation: alert, awake and oriented x3 HENMT Head: normal to inspection, normocephalic and atraumatic Face and sinus: normal facial exam Mouth: moist mucous membranes Eyes General: appearance normal, both eyes and all related structures Conjunctivae: conjunctivae normal Neck Neck: normal visual inspection, full ROM, trachea midline, supple and nontender Resp Effort & Inspection: normal respiratory effort and able to speak in complete sentences Auscultation: clear to auscultation bilaterally Cardio Rate: regular rate Rhythm: regular rhythm GI Palpation: soft, not firm, no guarding, no pulsatile masses and nontender Auscultation: normal bowel sounds Back/Spine/Pelvis Back: No back tenderness Skin General skin exam: no rashes or lesions noted Neuro General: patient alert, patient awake, moves all extremities and no focal motor deficits Cognition: normal cognition Speech: speech normal Gait: normal gait Motor: muscle tone normal throughout Sensory Exam: no sensory deficits noted Extrem General: normal to inspection, full ROM, capillary refill normal, no pedal edema and no calf tenderness Psych Appearance: grossly normal Mental Status: mental status grossly normal Course Vital Signs Vital signs: Vital Signs Temperature 36.7 C 07/21/21 09:26 Pulse 79 11/08/20 09:26 Respiratory Rate 24 11/08/20 09:26 Blood Pressure 157/85 H 11/08/20 09:26 Pulse Oximetry 98 11/08/20 09:26 Temperature 36.7 C 11/08/20 09:26 Temperature Source Temporal Artery Scan 11/08/20 09:26 Pulse 79 11/08/20 09:26 Respiratory Rate 24 11/08/20 09:26 Respiratory Effort Non-Labored 11/08/20 09:29 Blood Pressure 157/85 H 11/08/20 09:26 Blood Pressure Position Sitting 11/08/20 09:26 Pulse Oximetry 98 11/08/20 09:26 Oxygen Delivery Method Room Air 11/08/20 09:26 Oxygen Flow Rate 0 11/08/20 09:26 Pain Level 3 11/08/20 09:26 Lab/Test Results Lab/Test Results: Laboratory Tests Range/Units 11/08/20 09:29 WBC (4.4-10.8) 10^3/uL 9.75 RBC (4.36-5.78) 10^6/uL 5.09 Hgb (13.5-17.5) g/dL 15.1 Hct (40.0-50.0) % 43.8 MCV (80-95) fL 86.1 MCH (27.0-33.0) pg 29.7 MCHC (32.0-36.0) % 34.5 RDW (11.8-14.1) % 14.5 H Plt Count (130-400) 10^3/uL 273 MPV (8.0-11.0) fL 10.7 Immature Gran % 0.1 Neutrophils % 66.4 Lymphocytes % 25.7 Monocytes % 6.4 Eosinophils % 1.2 Basophils % 0.2 Nucleated RBC % % 0 Absolute Neutrophils (1.2-6.7) 10^3/uL 6.47 Absolute Lymphocytes (1.2-3.4) 10^3/uL 2.51 Absolute Monocytes (0.1-0.8) 10^3/uL 0.62 Absolute Eosinophils (0.0-0.7) 10^3/uL 0.12 Absolute Basophils (0.0-0.2) 10^3/uL 0.02 Critical Care Time Critical Care Time Critical Care Time: Yes Total Critical Care Time: 40 Attestation: Upon my evaluation, this patient had a high probability of clinically significant, life-threatening deterioration due to their current medical conditions, which required my direct attention, intervention, and personal management. I have personally provided greater than 30 minutes of critical care time exclusive of the time spend on separately billable procedures. Time includes obtaining a history, examining the patient, pulse oximetry, review of laboratory data, radiology results, discussion with consultants, arranging urgent treatment with development of a management plan, evaluation of patient's response to treatment, and monitoring for potential decompensation. Interventions were performed as documented above.
[2020-11-08 10:10] LABS: ALT 29 U/L (16-63); AST 14 U/L (15-37); Albumin 4.3 g/dL (3.4-5.0); Alkaline Phosphatase 68 U/L (46-116); Anion Gap 6.5 mmol/L (3-11); BUN 16 mg/dL (7-18); Bilirubin, Total 0.6 mg/dL (0.2-1.0); CO2 29.5 mmol/L (21.0-32.0); CREATININE 0.8 mg/dL (0.70-1.30); Chloride 101 mmol/L (98-107); Glucose 118 mg/dL (74-106); Magnesium 1.9 mg/dL (1.8-2.4); Potassium 3.6 mmol/L (3.5-5.1); Sodium 137 mmol/L (136-145); Total Protein 8.2 g/dL (6.4-8.2)
[2020-11-08 10:13] LABS: Troponin I < 0.05 ng/mL (<0.06)
[2020-11-08 11:33] LABS: PTT Activated 24.7 sec (21.0-27.5); Prothrombin Time 10.2 sec (9.3-11.0)
[2020-11-08] MEDS: nitroGLYcerin in D5W 50 MG/250 ML BTL IV (11:49)
[2020-11-08 11:52] LABS: D-Dimer 867 ng/mlFEU (<500)
--- NOTE | 2020-11-08 12:03 | DI.CT_ITS ---
Exam(s) CT CHEST PE ABD PELVIS W EXAM: CT CHEST PE ABD PELVIS W CLINICAL HISTORY: pain, elevated dimer. TECHNIQUE: Imaging Protocol: Axial CT angiography was performed with multi-slice acquisition and m ulti-planar and/or 3D reconstructions. CONTRAST MATERIAL: Intravenous: Omnipaque 350 Contrast volume:125 Oral: None COMPARISON: CT CHEST FOR PULMONARY EMBOLUS from 05/18/2016 FINDINGS: CHEST: PULMONARY ARTERIES: There are no intra-arterial filling defects to suggest the presence of acute pulm onary emboli. LUNGS: There is no evidence of pulmonary infarction.No confluent infiltrates. No ominous nodules in either lung field there are no pleural effusions.No significant focal findings in the trachea and angelita nstem bronchi. MEDIASTINUM: There is no hilar nor mediastinal adenopathy. Visualized thyroid unremarkable. CARDIAC: Heart size is normal. There is no pericardial effusion. There is no significant shift of t he interventricular septum.Caliber of the thoracic aorta is within normal limits. Left vertebral art kvng is noted to originate is an independent vessel off the aortic arch just proximal to the left subc lavian takeoff point. Diameter of the ascending thoracic aorta is within normal limits. There is no evidence of aortic dissection. There is mild fusiform infrarenal abdominal aortic aneurysm with maximum diameter of 2.5 cm.. No hig h-grade stenosis at the origin of the celiac and superior mesenteric arteries and the inferior mesent nathan artery is also noted to be patent. no evidence of significant stenosis in the solitary bilatera l renal arteries and both kidneys exhibit normal size. no high-grade stenosis at the aortic bifurcat ion. there is fusiform dilatation of the distal left common iliac artery which exhibits maximum diam eter of 1.9 cm. external iliac arteries are calcified with moderate atherosclerotic involvement. no aneurysms in these vessels. however, there is mild dilatation of the left common femoral artery whi ch exhibits maximum luminal diameter of 1.6 cm at the level of the femoral head. the opposite-right common femoral artery exhibits a luminal diameter of 1.3 cm. IN THE LEFT INFRA INGUINAL REGION THERE IS WHAT APPEARS TO BE A GRAFT. THIS DOES NOT EXHIBIT FLOW TH EREIN. PROBABLY OCCLUDED. OSSEOUS: No significant osseous lesions.. ABDOMEN: There is no ascites. LIVER: There are no focal hepatic lesions nor dilatation of intrahepatic ducts. GALLBLADDER/BILIARY: The gallbladder is surgically absent. CBD is not dilated. PANCREAS: There is a calcification within the pancreatic head measuring 9 x 10 millimeters. This is either within or immediately adjacent to the CBD at this level. In addition, there is a 2.7 x 1.6 cm hypodensity in the uncinate process of the pancreas which is suspicious for possible neoplasm. Ther e is no encasement of the adjacent superior mesenteric artery and vein. Pancreatic duct is not dilat ed. There is also suggestion of a 1 cm cystic structure in the extreme pancreatic tail just medial t o the spleen. Possibly significant. SPLEEN: Spleen is not enlarged. There are no intrasplenic lesions. ADRENALS: There are no significant adrenal masses. KIDNEYS:No cysts evident. No calculi nor hydronephrosis. No solid renal masses. ABDOMINAL AORTA: As described above there is mild fusiform dilatation of the infrarenal abdominal aor ta which exhibits maximum diameter of 2.5 cm. LYMPH NODES: There is no retroperitoneal or para-aortic adenopathy. ABDOMINAL WALL/GI: No evidence of significant anterior abdominal wall hernia. No bowel obstruction. There are no obvious ischemic appearing bowel loops. PELVIS: LYMPH NODES: There is no intrapelvic nor inguinal adenopathy. GI: No evidence of appendicitis.No evidence of sigmoid diverticulitis. URINARY BLADDER: No calculi nor masses evident REPRODUCTIVE: Enlarged prostate gland.. No obturator adenopathy evident. OSSEOUS: No significant osseous lesions. IMPRESSION: 1. No evidence of acute pulmonary emboli nor pulmonary infarction. 2. No focal pulmonary findings and no pleural effusions nor intrathoracic adenopathy 3. No evidence of aortic dissection. Mild infrarenal abdominal aortic aneurysm with maximum diameter 2.5 cm. 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 No tight stenosis nor dissection at this level nor elsewhere in the aortoiliac segments. Left common femoral artery also exhibits some dilatation, as described above. There is an occluded left fem-distal arterial graft seen on the lower most images of this study. 4. Suspicion for possible neoplasm here in the uncinate process of the pancreas. Respiratory motion artifact prevents accurate assessment of this area on this study and this require more dedicated stud y abdominal-pancreatic protocol. There is no obvious regional adenopathy and there is no encasement of the adjacent superior mesenteric vessels. All findings above were discussed by myself with emergency room provider. RADIATION DOSE DELIVERED: 1,117.98mGy.cm Total DLP DATA REPOSITORY: All CT scans at this facility are submitted to the National Radiology Data Registry (NRDR) Dose Index Registry (DIR) with the [employer] (ACR). RADIATION OPTIMIZATION: All CT scans at this facility use at least one of these dose optimization te chniques: automated exposure control; mA and/or kV adjustment per patient size (includes targeted exa ms where dose is matched to clinical indication); or iterative reconstruction.
[2020-11-08] MEDS: Omnipaque 350 MG/ML 100 ML BTL IJ (12:55)
[2020-11-08] MEDS: Normal Saline - Diluent 50 ML VIAL IV (12:55)
[2020-11-08] MEDS: Omnipaque 350 MG/ML 50 ML BTL IJ (12:56)
[2020-11-08] MEDS: Normal Saline Flush 10 ML SYR IVP (12:56)
[2020-11-08 13:19] LABS: Source Nasal/Nares
[2020-11-08 13:28] LABS: Troponin I < 0.05 ng/mL (<0.06)
[2020-11-08 14:13] LABS: COVID-19 PCR Negative (Negative)
--- NOTE | 2020-11-08 15:47 | HPE_ITS ---
Date of service: 11/08/20 Time of Service: 15:47 Assessment and Plan Assessment and plan (1) CAD (coronary artery disease): Status: Chronic Assessment and plan: Accepted at [facility] when bed available. Cardiology recommends ongoing nitro drip. No heparin. Cont ASA(not on current med list? ASA was to be continued per cardiology note of 08/2020). Cont BB and statin. Telemetry. Qualifiers: Coronary Disease-Associated Artery/Lesion type: [place] artery [place] vs. transplanted heart: [place] heart Associated angina: with unspecified form of angina Qualified Code(s): I25.119 - Atherosclerotic heart disease of [place] coronary artery with unspecified angina pectoris (2) HLD (hyperlipidemia): Status: Acute Assessment and plan: Cont statin. (3) HTN (hypertension): Status: Chronic Assessment and plan: Cont amlodipine, chlothalidone, Losartan. Monitor. (4) PAD (peripheral artery disease): Status: Acute Assessment and plan: Cont ASA, BB, statin (5) Diabetes mellitus: Status: Chronic Assessment and plan: Hold Trulicity (once weekly). Hold metformin and glimepiride. Cont Levemir at a lower dose than home dose that is 90 units SQ TID. Sliding scale insulin correction dosing. Monitor and adjust dosages as necessary Diabetic Diet. History of Present Illness History of Present Illness Chief Complaint: Chest Pain Narrative: This is a 65 yo male with a PMH of CAD (stents x 2) , PAD (fem-pop bypass), DM2, HTN, HLD. He presented to the ED with c/o substernal CP radiating into his left arm while he was on the treadmill. He gets up typically around 2:30 to 3:00 AM and ex ercises on the treadmill. The pain was rated 10/10. He took a total of 3 nitro. His pain improved to a 2/10 and he no longer had left arm pain. In the ED his pain increased again to 4/10 and a nitroglycerin drip initiated. CTA chest performed and was negative for a pulmonary embolism or other acute findings. Cardiology at [facility], Dr. Alfaro consulted by ED doctor. Recommendation of nitro drip, no heparin at this time. Cont asa, Crestor, BB. They will accept her and transfer tomorrow when a bed is available. Review of Systems All systems reviewed & are unremarkable except as noted in HPI and below PFSH Medical History (Updated 11/08/20 @ 16:02 by Zak Little MD) CAD (coronary artery disease) Chest pain Diabetes mellitus Diabetic neuropathy Erectile dysfunction HLD (hyperlipidemia) HTN (hypertension) Lumbago with sciatica, left side PAD (peripheral artery disease) PVD (peripheral vascular disease) Unstable angina Surgical History H/O heart artery stent (~05/2016) MATTHEW to RCA x 2 History of cholecystectomy Hx of endarterectomy (~1998) left common femoral S/P femoral-popliteal bypass surgery S/P right rotator cuff repair Social History Smoking/Tobacco Use Status: Former Tobacco Use Pack-years: 20 Smoking risk assessment performed?: Yes Alcohol Intake: never Drug use: Never Substance use type: does not use What type of physical activity do you participate in: walking and additional Details: walks 2-3 miles every other day Frequency: 3-4 times per week Do you feel safe at home: Yes Do you feel safe in your relationship?: Yes Meds Allergies and Home Medications Allergies Allergy/AdvReac Type Severity Reaction Status Date / Time No Known Allergies Allergy Unverified 09/14/19 14:17 Home Medications Medication Instructions Recorded Confirmed Type nitroglycerin 0.4 mg SUBLINGUAL PRN PRN 12/13/13 11/08/20 History sildenafil [Viagra] 100 mg PO PRN PRN 12/13/13 11/08/20 History glimepiride 1 tab PO DAILY 05/30/14 11/08/20 History rosuvastatin [Crestor] 40 mg PO DAILY #30 tab 10/09/16 11/08/20 History amlodipine 10 mg tablet 10 mg PO DAILY 04/01/18 11/08/20 History dulaglutide 0.75 mg/0.5 mL 1.5 mg SC QWEEK 04/01/18 11/08/20 History subcutaneous pen injector carvedilol 25 mg tablet 25 mg PO BID #180 tab 04/06/19 11/08/20 Rx hydrocodone bitartrate 10 mg 10 mg PO TID PRN cap 04/06/19 11/08/20 History capsule, oral only, extended rel 12 hr metformin 850 mg tablet 1,600 mg PO DAILY tab 04/06/19 11/08/20 History chlorthalidone 50 mg PO DAILY 11/08/20 11/08/20 History insulin detemir U-100 [Levemir 90 unit SUBCUT TID 11/08/20 11/08/20 History FlexTouch U-100 Insuln] losartan 100 mg PO DAILY 11/08/20 11/08/20 History naloxone [Narcan] 1 spray INTRANASAL PRN PRN 11/08/20 11/08/20 History Exam Const General: cooperative and no acute distress Eyes Sclera: sclerae normal Pupils: PERRL Neck Neck: full ROM and no JVD Resp Effort & Inspection: normal respiratory effort Auscultation: clear to auscultation bilaterally Cardio Rate: regular rate Rhythm: regular rhythm Heart Sounds: S1 normal and S2 normal GI Inspection: obesity Palpation: soft and nontender Skin General skin exam: no rashes or lesions noted Extrem General: no pedal edema and no calf tenderness Psych Appearance: grossly normal Mental Status: mental status grossly normal Speech and Movement: speech and movement normal Affect: normal affect Results Labs Result diagrams: 11/08/20 09:29 11/08/20 09:29 Labs: Laboratory Results - last 24 hr 11/08/20 11/08/20 11/08/20 09:29 09:29 11:05 WBC 9.75 RBC 5.09 Hgb 15.1 Hct 43.8 MCV 86.1 MCH 29.7 MCHC 34.5 RDW 14.5 H Plt Count 273 MPV 10.7 Immature Gran % 0.1 Neutrophils % 66.4 Lymphocytes % 25.7 Monocytes % 6.4 Eosinophils % 1.2 Basophils % 0.2 Nucleated RBC % 0 Absolute Neutrophils 6.47 Absolute Lymphocytes 2.51 Absolute Monocytes 0.62 Absolute Eosinophils 0.12 Absolute Basophils 0.02 PT 10.2 INR 1.0 APTT 24.7 D-Dimer 867 H Sodium 137 Potassium 3.6 Chloride 101 Carbon Dioxide 29.5 Anion Gap 6.5 BUN 16 Creatinine 0.8 Estimated GFR/1.73 m2 >= 60.00 Glucose 118 H Calcium 9.0 Magnesium 1.9 Total Bilirubin 0.6 AST 14 L ALT 29 Alkaline Phosphatase 68 Troponin I < 0.05 Total Protein 8.2 Albumin 4.3 COVID-19 Source SARS-CoV-2 (PCR) 11/08/20 11/08/20 12:38 13:06 WBC RBC Hgb Hct MCV MCH MCHC RDW Plt Count MPV Immature Gran % Neutrophils % Lymphocytes % Monocytes % Eosinophils % Basophils % Nucleated RBC % Absolute Neutrophils Absolute Lymphocytes Absolute Monocytes Absolute Eosinophils Absolute Basophils PT INR APTT D-Dimer Sodium Potassium Chloride Carbon Dioxide Anion Gap BUN Creatinine Estimated GFR/1.73 m2 Glucose Calcium Magnesium Total Bilirubin AST ALT Alkaline Phosphatase Troponin I < 0.05 Total Protein Albumin COVID-19 Source Nasal/Nares SARS-CoV-2 (PCR) Negative Last Vital Signs Temp 36.7 C 11/08/20 09:26 Pulse 75 11/08/20 14:46 Resp 18 11/08/20 14:50 BP 128/66 11/08/20 14:46 Pulse Ox 92 11/08/20 14:50
[2020-11-08] MEDS: HYDROcodone 10/Acetaminophen 325 TAB 10 TAB PO (17:34)
[2020-11-08] MEDS: Insulin Aspart 300 UNITS/3 ML PEN SC (17:36)
[2020-11-08] MEDS: Heparin 5,000 UNITS/ML VIAL 5000 UNITS SC (17:37)
[2020-11-08] MEDS: Carvedilol 25 MG TAB PO (19:46)
[2020-11-08] MEDS: Acetaminophen 325 MG TAB 650 MG PO (23:27)
[2020-11-09] VITALS (71 sets, daily range): BP systolic 106–134; BP diastolic 51–78; PULSE 72–84; RESP 10–35; TEMP 36.4–36.5; O2SAT 88–97
[2020-11-09] MEDS: HYDROcodone 10/Acetaminophen 325 TAB PO ×2 (02:17→08:53)
[2020-11-09] MEDS: Heparin 5,000 UNITS/ML VIAL 5000 UNITS SC ×2 (02:21→11:26)
[2020-11-09 07:10] LABS: Anion Gap 9.6 mmol/L (3-11); BUN 17 mg/dL (7-18); CO2 27.4 mmol/L (21.0-32.0); CREATININE 0.8 mg/dL (0.70-1.30); Chloride 102 mmol/L (98-107); Glucose 117 mg/dL (74-106); Potassium 3.8 mmol/L (3.5-5.1); Sodium 139 mmol/L (136-145)
[2020-11-09] MEDS: Aspirin 81 MG CHEW PO (08:44)
[2020-11-09] MEDS: Losartan 50 MG TAB 100 MG PO (08:44)
[2020-11-09] MEDS: Chlorthalidone 25 MG TAB 50 MG PO (08:44)
[2020-11-09] MEDS: Carvedilol 25 MG TAB PO (08:44)
[2020-11-09] MEDS: amLODIPine 10 MG TAB PO (08:45)
--- NOTE | 2020-11-09 08:54 | INITIAL_ITS ---
- If Service Date Differs Date of service: 11/09/20 Time of Service: 08:55 Care Management Initial Assess REASON FOR HOSPITALIZATION:: Chest Pain, coronary artery disease PAST MEDICAL HISTORY/PAST SURGICAL HISTORY:: CAD (coronary artery disease). Chest pain. Diabetes mellitus. Diabetic neuropathy. Erectile dysfunction. HLD (hyperlipidemia). HTN (hypertension). Lumbago with sciatica, left side. PAD (peripheral artery disease). PVD (peripheral vascular disease). Unstable angina. Surgical History . H/O heart artery stent (~05/2016). MATTHEW to RCA x 2. History of cholecystectomy. Hx of endarterectomy (~1998). left common femoral. S/P femoral-popliteal bypass surgery. S/P right rotator cuff repair PREVIOUS FUNCTIONAL STATUS/SOCIAL/FAMILY SUPPORTS:: Rich lives at home with his Merary in [facility]. He is independent at baseline and enjoys being active. Rich particularly likes hunting, fishing and archery. He has 3 adult children (2 sons and 1 daughter) who are all supportive. CURRENT FUNCTIONAL STATUS:: Rich was sitting up in bed, pleasant and easily engaged in converation when CM met with him. Rich talked about his previous heart issues and is anticipating transfer to [facility] [place], he has been accepted to [facility] when a bed becomes available. ADVANCE DIRECTIVES:: Not on file Has patient been provided with info about the portal/API?: Yes Did the patient sign up for the portal?: No CODE STATUS:: Full Code INSURANCE COVERAGE / FINANCIAL ISSUES:: [employer]. Medicare CURRENT HOME/COMMUNITY SERVICES/EQUIPMENT:: No services at this time PRIMARY CARE PHYSICIAN:: Ty Lynn POTENTIAL DISCHARGE NEEDS:: Accepted at [facility] when a bed becomes available. PATIENT/FAMILY EDUCATION NEEDS:: Review of [facility] transfer information as it becomes available, ask me three. ANTICIPATED BARRIERS TO DISCHARGE:: None at this time TRANSPORTATION:: via ambulance to [facility] when a bed becomes available. PLAN:: Transfer to [facility] tomorrow when a bed becomes available
[2020-11-09] MEDS: Polyethylene Glycol 3350 17 GM PACKET PO (10:03)
--- NOTE | 2020-11-09 15:34 | DSE_ITS ---
Date of service: 11/09/20 Time of Service: 15:34 DS: Diagnosis Discharge Diagnosis (1) CAD (coronary artery disease): Status: Chronic Asessment and Plan: This is a 65 yo male with a PMH of CAD (stents x 2) , PAD (fem-pop bypass), DM2, HTN, HLD. He presented to the ED with c/o substernal CP radiating into his left arm while he was on the treadmill. On ASA, BB and statin. Cardiology at [facility] recommended nitro drip, no heparin drip. MCCLURE from nitroglycerin. Accepted at [facility] for further care (2) HLD (hyperlipidemia): Status: Acute Asessment and Plan: On Crestor (3) HTN (hypertension): Status: Chronic Asessment and Plan: On Amlodipine, chlorthalidone, Losartan. (4) PAD (peripheral artery disease): Status: Acute (5) Diabetes mellitus: Status: Chronic Asessment and Plan: His home metformin and glimeperide were held. His Levimir was continued at a lower dose than his home dose. Sliding scale insulin correction dosing intiated. Diabetic diet. Discharge Plan Disposition Patient Disposition: [facility] Condition: Stable Discharge Details Admit Date/Time: 11/08/20 13:35 Admit Provider: Zak Little Attending Provider: Zak Little Primary Care Provider: Ty Lynn Home Meds and New Rx's Prescriptions: No Action Trulicity 0.75 mg/0.5 mL pen injector 1.5 mg SC QWEEK RF: 0 metformin 850 mg tablet 1,600 mg PO DAILY RF: 0 hydrocodone bitartrate 10 mg capsule, oral only, ER 12hr 10 mg PO TID PRNRF: 0 carvedilol 25 mg tablet 25 mg PO BID Qty: 180 RF: 6 sildenafil [Viagra] 50 MG tablet 100 mg PO PRN PRNRF: 0 nitroglycerin 0.4 MG tablet, sublingual 0.4 mg Sublingual PRN PRNRF: 0 rosuvastatin [Crestor] 10 MG tablet 40 mg PO DAILY Qty: 30 RF: 0 amlodipine 10 mg tablet 10 mg PO DAILY RF: 0 glimepiride 4 MG tablet 1 tab PO DAILY RF: 0 chlorthalidone 25 mg tablet 50 mg PO DAILY RF: 0 losartan 100 mg Tablet 100 mg PO DAILY RF: 0 Levemir FlexTouch U-100 Insuln 100 unit/mL (3 mL) Insulin Pen 90 unit SUBCUT QAM RF: 0 Narcan 4 mg/actuation [place],Non-Aerosol 1 spray INTRANASAL PRN PRNRF: 0 Discharge Instructions Activity:: bedrest Diet:: NPO after MN Discharge Orders Discharge Orders: Discharge Order (Routine); Ordered 11/09/20 Ordered By: Zak Little DS: Summary Time Spent with Patient providing and/or coordinating discharge services: Greater than 30 minutes Status at Discharge Functional status at discharge: independent ambulation Overall status at discharge: patient is not back to baseline Mental Status: mental status grossly normal Speech and Movement: speech and movement normal Mood: congruent mood Affect: normal affect Exam Const General: cooperative and no acute distress Eyes Sclera: sclerae normal Pupils: PERRL Neck Neck: full ROM and no JVD Resp Effort & Inspection: normal respiratory effort Auscultation: clear to auscultation bilaterally Cardio Rate: regular rate Rhythm: regular rhythm Heart Sounds: S1 normal and S2 normal GI Inspection: obesity Palpation: soft and nontender Skin General skin exam: no rashes or lesions noted Extrem General: no pedal edema and no calf tenderness Psych Appearance: grossly normal Mental Status: mental status grossly normal Speech and Movement: speech and movement normal Mood: congruent mood Affect: normal affect DS: Data Vitals/I&O Vitals and I&O: Vital Signs Temperature 36.4 C L 11/09/20 12:00 Temperature Source Temporal Artery Scan 11/09/20 12:00 Pulse 72 11/09/20 08:00 Pulse 74 11/09/20 08:01 Respiratory Rate 18 11/09/20 12:00 Respiratory Effort 11/09/20 12:00 Respiratory Depth Normal 11/09/20 12:00 Respiratory Pattern Normal 11/09/20 12:00 Blood Pressure 113/63 11/09/20 08:00 Blood Pressure Mean 75 11/09/20 08:00 Blood Pressure Position Supine 11/09/20 12:00 Pulse Oximetry 97 11/09/20 12:00 Oxygen Delivery Method Room Air 11/09/20 12:00 Oxygen Flow Rate 0 11/09/20 12:00 Pain Level 0 11/09/20 12:00 Intake & Output 07/11/09/20 11/09/20 23:59 11:59 23:59 Intake Total 316.20 / 326.20 275.813 / 635.813 360 / 635.813 Output Total 1850 / 1850 250 / 250 Balance -1533.80 / -1523.80 25.813 / 385.813 360 / 385.813 Weight 103.4 kg 103.8 kg Intake: IV 16.20 / 26.20 35.813 / 35.813 Oral 300 / 300 240 / 600 360 / 600 Output: Urine 1850 / 1850 250 / 250 Other: Urine Color Yellow Yellow Urine Appearance Clear Clear Urine Odor Normal Normal Voiding Methods Urinal Urinal Data Completed and Pending Labs on day of discharge: Labs from last 24 hours 11/09/20 06:15 Sodium 139 Potassium 3.8 Chloride 102 Carbon Dioxide 27.4 Anion Gap 9.6 BUN 17 Creatinine 0.8 Estimated GFR/1.73 m2 >= 60.00 Glucose 117 H Calcium 9.0 PFSH Medical History CAD (coronary artery disease) Chest pain Diabetes mellitus Diabetic neuropathy Erectile dysfunction HLD (hyperlipidemia) HTN (hypertension) Lumbago with sciatica, left side PAD (peripheral artery disease) PVD (peripheral vascular disease) Unstable angina Surgical History H/O heart artery stent (~05/2016) MATTHEW to RCA x 2 History of cholecystectomy Hx of endarterectomy (~1998) left common femoral S/P femoral-popliteal bypass surgery S/P right rotator cuff repair Social History Smoking/Tobacco Use Status: Former Tobacco Use Pack-years: 20 Smoking risk assessment performed?: Yes Alcohol Intake: never Drug use: Never Substance use type: does not use What type of physical activity do you participate in: walking and additional Details: walks 2-3 miles every other day Frequency: 3-4 times per week Do you feel safe at home: Yes Do you feel safe in your relationship?: Yes
== END 2020-11-09 16:35 | disposition short-term general hospital (02) | DRG 303 ==
LOC: ER 13:22 → ICU 15:15
PROVIDERS: Admitting Provider Family Medicine; Emergency Provider Physician Assistant; PCP Internal Medicine; Visit Provider Family Medicine
DX: I25.119 Atherosclerotic heart disease of native coronary artery with unspecified angina pectoris (principal); E11.40 Type 2 diabetes mellitus with diabetic neuropathy, unspecified; I10 Essential (primary) hypertension; E78.5 Hyperlipidemia, unspecified; Z20.822 Contact with and (suspected) exposure to COVID-19; I73.9 Peripheral vascular disease, unspecified; M54.42 Lumbago with sciatica, left side; Z87.891 Personal history of nicotine dependence; Z79.4 Long term (current) use of insulin; Z95.5 Presence of coronary angioplasty implant and graft
CPT/HCPCS: 36415; 71275; 74177; 80048; 80053; 87635; 93005; 96374; 99285; 71046; 83735; 84484; 85025; 85379; 85610; 85730; 93010; 93306; 99223; 99239; J1644; J3490; Q9967

== ENCOUNTER → 2021-06-19 09:04 | Outpatient (BNVA) | payer MEDICARE, SELFPAY | PROVIDERS: PCP Internal Medicine; Referring Provider Internal Medicine; Visit Provider Surgery | DX: L72.9 Follicular cyst of the skin and subcutaneous tissue, unspecified (principal) | CPT/HCPCS: 99202; 99213 ==

== ENCOUNTER → 2021-07-06 08:11 | Outpatient (BNVA) | payer MEDICARE, SELFPAY | PROVIDERS: PCP Internal Medicine; Referring Provider Internal Medicine; Visit Provider Surgery | DX: L72.9 Follicular cyst of the skin and subcutaneous tissue, unspecified (principal) | CPT/HCPCS: 11421 ==

== ENCOUNTER 2021-07-23 02:54 | Outpatient (CLI) | payer OTHER, SELFPAY ==
--- NOTE | 2021-07-23 08:15 | DI.CT_ITS ---
Exam(s) CT HEAD WO/W EXAM: CT HEAD WO/W CLINICAL HISTORY: Occipital scalp cyst, not sebaceous, not lipoma,L72.9. TECHNIQUE: Imaging Protocol: Both noninfused and contrast infused CT scans of the brain were perform ed. IV Contrast Dose =75 cc Axial computed tomography images with coronal and sagittal reformatted images were created and review ed COMPARISON: No exams were available for comparison FINDINGS: There are no skull fractures nor fluid in the visualized paranasal sinuses. There is no evidence of intracranial hemorrhage, mass effect, or shift of midline structures. There are no extra-axial fluid collections. The ventricles are not enlarged or shifted and there is no blo od within the ventricular system nor within the basal cisterns. There are no ring enhancing lesions in the brain and there is no abnormal meningeal enhancement, foca l or diffuse. In the posterior scalp tissue over the central acceptable region there is a 2.2 x 2.1 by 2.0 cm centr ally hypodense enhancing lesion without erosion or invasion of the adjacent skull outer table central hypodense area noted, possibly necrosis or possibly related to recent biopsy. IMPRESSION: No significant intracranial findings. 2.2 x 2.1 x 2.0 cm posterior scalp lesion as described above. This contains a centrally hypodense de nse area which measures 8 x 7 millimeters, either from central necrosis or related possible recent bi opsy.. RADIATION DOSE DELIVERED: 1,904.04mGy.cm Total DLP DATA REPOSITORY: All CT scans at this facility are submitted to the National Radiology Data Registry (NRDR) Dose Index Registry (DIR) with the [employer] (ACR). RADIATION OPTIMIZATION: All CT scans at this facility use at least one of these dose optimization te chniques: automated exposure control; mA and/or kV adjustment per patient size (includes targeted exa ms where dose is matched to clinical indication); or iterative reconstruction.
[2021-07-23] MEDS: Omnipaque 350 MG/ML 100 ML BTL IJ (15:34)
[2021-07-23] MEDS: Normal Saline Flush 10 ML SYR IVP (15:35)
== END 2021-07-23 03:14 ==
LOC: DI 02:54
PROVIDERS: PCP Internal Medicine; Visit Provider Surgery
DX: L72.9 Follicular cyst of the skin and subcutaneous tissue, unspecified (principal)
CPT/HCPCS: 70470; J3490

== ENCOUNTER 2021-07-26 23:16 | Outpatient (REF) | payer MEDICARE, SELFPAY ==
[2021-07-26 20:17] LABS: COMMENT (LAB VIEW ONLY) 26.88 mg/dL; Microalb ug/mg Crea 89.3 ug/mg Cr
== END 2021-07-26 23:17 | disposition home or self-care (01) ==
LOC: NCHCN 23:16
PROVIDERS: PCP Internal Medicine; Visit Provider Internal Medicine
DX: E11.9 Type 2 diabetes mellitus without complications (principal)
CPT/HCPCS: 82043; 82570

== ENCOUNTER → 2021-07-31 13:28 | Outpatient (BNVA) | payer MEDICARE, SELFPAY | PROVIDERS: PCP Internal Medicine; Referring Provider Internal Medicine; Visit Provider Surgery | DX: R22.0 Localized swelling, mass and lump, head (principal) | CPT/HCPCS: 99212 ==

== ENCOUNTER 2021-08-27 01:20 | Outpatient (CLI) | payer MEDICARE, SELFPAY ==
[2021-08-27 12:23] LABS: Source Nasal/Nares
[2021-08-27 17:02] LABS: COVID-19 PCR Negative (Negative)
== END 2021-08-27 01:21 | disposition home or self-care (01) ==
LOC: LBO 01:21
PROVIDERS: PCP Internal Medicine; Visit Provider Surgery
DX: Z20.822 Contact with and (suspected) exposure to COVID-19 (principal); Z01.818 Encounter for other preprocedural examination
CPT/HCPCS: 87635; U0005

== ENCOUNTER 2021-08-29 07:46 | Day surgery (SDC) | payer MEDICARE, SELFPAY ==
--- NOTE | 2021-08-29 06:26 | W.ANESPRE ---
General Info Date of Service Date Performed: 08/29/21 Height: 6 ft Weight: 102.058 kg Body Mass Index (BMI): 30.5 Surgical Procedure: Operation Date: 08/29/21 09:40 Proposed Procedure Side Surgeon p Excision Lesion Posterior Scalp Mavis Grullon MD Meds Allergies and Home Medications Allergies Allergy/AdvReac Type Severity Reaction Status Date / Time No Known Allergies Allergy Verified 08/29/21 08:19 Home Medication Medication Instructions Recorded nitroglycerin 0.4 mg sublingual 0.4 mg SUBLINGUAL PRN PRN 12/13/13 tablet sildenafil 50 mg tablet (Viagra) 100 mg PO PRN PRN 12/13/13 glimepiride 4 mg tablet 1 tab PO DAILY 05/30/14 rosuvastatin 10 mg tablet (Crestor) 40 mg PO DAILY #30 tab 10/09/16 amlodipine 10 mg tablet 10 mg PO DAILY 04/01/18 dulaglutide 0.75 mg/0.5 mL 1.5 mg SC QWEEK 04/01/18 subcutaneous pen injector (Trulicity) carvedilol 25 mg tablet 25 mg PO BID #180 tab 04/06/19 chlorthalidone 25 mg tablet 50 mg PO DAILY 11/08/20 insulin detemir U-100 100 unit/mL 75 - 80 unit SUBCUT QAM 11/08/20 (3 mL) subcutaneous pen (Levemir FlexTouch U-100 Insulin) losartan 100 mg tablet 100 mg PO DAILY 11/08/20 naloxone 4 mg/actuation nasal 1 spray INTRANASAL PRN PRN 11/08/20 spray (Narcan) aspirin 81 mg tablet,delayed 81 mg PO DAILY 04/24/21 release (Adult Low Dose Aspirin) hydrocodone 10 mg-acetaminophen 1 tab PO Q8H PRN 04/24/21 325 mg tablet metformin 850 mg tablet 850 mg PO BID tab 04/24/21 Current Visit Medications: Current Medications Generic Name Dose Route Start Last Admin Trade Name Freq PRN Reason Stop Dose Admin Ringer's Solution 1,000 mls @ 80 mls/hr 08/29/21 06:00 IV 09/27/21 23:59 INFUSION YUNI Cefazolin Sodium/Dextrose 2 gm in 50 mls @ 100 mls/hr 08/29/21 06:00 Ancef Duplex IVPB 09/27/21 23:59 PREOP YUNI IV Miscellaneous Supplies 1 each 08/29/21 06:00 Iv Access IV 09/27/21 23:59 DIRECTED YUNI Sodium Chloride 0 ml 08/29/21 06:00 Normal Saline Flush 10 Ml Syr IV 09/27/21 23:59 PRN PRN Sodium Chloride 0 ml 08/29/21 06:00 Normal Saline 10 Ml Vial IJ 09/27/21 23:59 DIRECTED PRN Sterile Water 0 ml 08/29/21 06:00 Water,Injection,Sterile 10 Ml Vial IJ 09/27/21 23:59 DIRECTED PRN PFSH Active Problems Active Problems: Problem Status Onset Code Diabetes mellitus E11.9 Chest pain R07.9 CAD (coronary artery disease) I25.10 Scalp cyst L72.9 Scalp mass R22.0 Medical History Medical History Cervical radiculopathy Diabetic neuropathy Erectile dysfunction HLD (hyperlipidemia) HTN (hypertension) Lumbago with sciatica, left side PAD (peripheral artery disease) Unstable angina Pt. states it was gas Medical History Comments:: Last seen by cardiology 04/2021 for regular f/u Surgical History Surgical History H/O heart artery stent (~05/2016) MATTHEW to RCA x - F/U with cardiology @ [facility] – [place] 04/2021 History of cholecystectomy Hx of endarterectomy (~1998) left common femoral S/P femoral-popliteal bypass surgery S/P right rotator cuff repair Tobacco Smoking/Tobacco Use Status: Former Tobacco Use Alcohol Alcohol Intake: never Substance Use Substance use: Never Substance use type: does not use Vital Signs and Lab Results Lab Results Blood Type / Crossmatch: No Data to Display Complete Blood Count: No Data to Display Complete Metabolic Panel: No Data to Display Liver Function Panel: No Data to Display Coagulation Panel: No Data to Display Cardiac Panel: No Data to Display Arterial Blood Gas: No Data to Display Venous Blood Gas: No Data to Display Pancreas Panel: No Data to Display Thyroid Panel: No Data to Display Infectious Disease: Coronavirus (COVID-19)(PCR) Negative (Negative) 08/27/21 08:40 08/27/21 Coronavirus 2019 Source Nasal/Nares 08/27/21 08:40 08/27/21 Blood Cultures: No Data to Display Toxicology Panel: No Data to Display Imaging and Studies Imaging and Studies Study information below may be from another EMR and interpreted by another provider. Please see original notes in EMR for more complete details. EKG Summary: 10/2020: sinus. [place] >220 ms Stress Test Summary: 03/2019: 9.5 METS, no evidence of ischemia on ECG. No evidence of ischemia on imaging. Echocardiogram Summary: 10/2020: LVEF 55%, no WMA. normal RvFxn, PAS 19 mmhg. no significant valve disease. Cardiac Catheterization Summary: 01/2021: left circ 50% stenosis. Anesthesia Assessment and Plan Anesthesia History Personal History: No History of Anesthesia Complications Family History: No Family History of Anesthesia Complications Exercise Tolerance Exercise Tolerance: Metabolic Equivalents>4 Pertinent Negatives Pertinent Negatives: No Symptoms of GERD, No Major Cardiovascular Symptoms or Complaints (Stents x 2 2016, cardiac cath cleared 2020, cardiology cleared 04/2021), No Major Pulmonary Symptoms or Complaints and No History of CVA/TIA Cardiac & Pulmonary Exam Cardiac Exam: Normal S1/S2 Heart Sounds Pulmonary Exam: Clear Bilateral Breath Sounds Implantable Cardiac Device Does patient have a Pacemaker or an ICD?: No Airway Exam Known Difficult Airway: No Mallampati Class: 1 Mouth Opening: Normal (> 3cm) Thyromental Distance: Greater than 3 cm Neck Range of Motion: Full ROM Neck Circumference: Thick Teeth Condition: Removable Dentures/Plates Upper and Edentulous ASA Classification ASA Score: ASA 3 Emergency Case?: No NPO Status NPO Status: NPO Clears >2 hours, Solids >8 hours Anesthesia Plan Resuscitation Status: Full Code Anesthesia Technique: General Anesthesia Airway Planned: Natural Airway Monitors Used: Standard Monitors Preoperative Comments:: 66 yo male for posterior scalp lesion. Sig PMHx: CAD with stents 2017 MATTHEW to RCA x 2, DM, cervical radiculopathy, DM (with neuropathy), HTN, PVD. Previous Anes: mac 3 grade 1, easy mask.
--- NOTE | 2021-08-29 06:43 | W.PM.OP ---
Date of service: 08/29/21 Time of Service: 09:13 Operative Note Operative Note DATE OF PROCEDURE: 08/29/21 PRE-OP DIAGNOSIS: Occipital mass POST-OP DIAGNOSIS: same ? ganglion cyst PROCEDURE: Excision of occipital mass SURGEON: Mavis Grullon SUPERVISOR PRESSING DEPARTMENT: [facility] Refer to Anesthesia Record PATHOLOGY: other (occipital mass) COMPLICATIONS: None Patient was transported to: same day Patient's condition: stable Indications: Mr. Otero is a 2 x 3 cm mass in the occipital area of her scalp.? I did attempt to remove this in the office but it felt attached to underlying structures so I aborted and closed the incision.? CT scan was done which showed no ulceration or erosion into the bone.? We will attempt removal again in the operating room this time with some sedation and local.? I have told him that I would not need to make the incision slightly larger in order to be able to take all of it out.? As I am not 100% sure what it is I will also send it to pathology for identification.? Risks, benefits is reviewed with him.? Complications include but are not limited limited to bleeding, infection, recurrence injury to nerves and adverse reaction to the medications.? Questions were entertained and answered to his satisfaction and he wished to proceed.? No guarantees were given or implied Proceed with excision of occipital mass under MAC sedation and local. Findings: cyst filled with clear thick fluid- ? ganglion cyst Procedure Description: After informed consent was obtained the patient was taken to the operating room placed in a prone position. Monitors were applied and a timeout was done. The hair over the palpable occipital mass was clipped and the area was prepped and draped in a sterile surgical fashion. A timeout was done and the patient's name, date of , allergies to medications, procedure to be done, DVT prophylaxis, and antibiotic prophylaxis were reviewed. Fire risk was assessed. The patient was then placed under sedation. Once sedated and comfortable quarter percent bupivacaine was injected into the dermis and subcutaneous tissue over the palpable mass. A 3 cm incision was made with a 15 blade. Cautery was used to go through the dermis down to where a cyst capsule was identified. The capsule was clear. Using iris scissors dissection was sharply done around the mass which went all the way down to the scalp. Using some blunt dissection and sharp dissection I was able to remove the entire cyst. The cyst measured 2 x 2 cm. The cyst was removed from the operating field and placed in formalin for pathology. Some bleeding was noted and this was stopped using cautery. The wound was irrigated. Once there was no more bleeding noted the subcutaneous tissue was reapproximated with 3-0 Vicryl. The skin was closed with dean. The skin was then cleaned and dried. The patient was allowed to wake up and then rolled himself over onto the stretcher. The patient was then taken down to same-day surgery in stable condition. There were no immediate complications. Sponge instrument and needle counts were correct at the end of the case.
--- NOTE | 2021-08-29 06:45 | W.PM.DSUDISC ---
Discharge Plan Disposition Patient Disposition: HOME Condition: Good Discharge Details Reason For Visit: occipital mass Attending Provider: Mavis Grullon Primary Care Provider: Ty Lynn Home Meds and New Rx's Prescriptions: Continued Trulicity 0.75 mg/0.5 mL pen injector 1.5 mg SC QWEEK 0RF carvedilol 25 mg tablet 25 mg PO BID Qty: 180 6RF Rx Instructions: must administer with a meal/food sildenafil [Viagra] 50 MG tablet 100 mg PO PRN PRN0RF nitroglycerin 0.4 MG tablet, sublingual 0.4 mg Sublingual PRN PRN0RF Label Comments: no longer has rosuvastatin [Crestor] 10 MG tablet 40 mg PO DAILY Qty: 30 0RF amlodipine 10 mg tablet 10 mg PO DAILY 0RF metformin 850 mg tablet 850 mg PO BID 0RF hydrocodone-acetaminophen 10-325 mg tablet 1 tab PO Q8H PRN0RF aspirin [Adult Low Dose Aspirin] 81 mg tablet,delayed release (DR/EC) 81 mg PO DAILY 0RF glimepiride 4 MG tablet 1 tab PO DAILY 0RF chlorthalidone 25 mg tablet 50 mg PO DAILY 0RF Label Comments: TAKE 2 TABLETS BY MOUTH DAILY losartan 100 mg Tablet 100 mg PO DAILY 0RF Levemir FlexTouch U-100 Insuln 100 unit/mL (3 mL) Insulin Pen 75 - 80 unit SUBCUT QAM 0RF Rx Instructions: pt takes a varied amount base on am fs. range is usually 60-90 naloxone [Narcan] 4 mg/actuation [place],Non-Aerosol 1 spray INTRANASAL PRN PRN0RF Discharge Instructions Additional Instructions: Activity at Home after surgery: 1. Make sure you walk outside at least 4 times per day 2. You should be able to climb a flight of stairs 3. No driving while in pain or taking pain medications 4. No strenuous activity or heavy lifting for 2 weeks (laparoscopic surgery) or 4 weeks (open surgery) Diet, Nutrition, & wound healin. Avoid alcohol until after you are recovered from your surgery 2. Make sure to eat plenty of lean protein (meat, fish, eggs, cottage cheese, beans) 3. Eat a variety of fruits and vegetables. Eat plenty of high fiber foods to avoid constipation. 4. Drink plenty of liquids to stay hydrated and avoid constipation Pain Medications: 1. Tylenol 650mg every 6 hours as needed and Ibuprofen 600 mg every 6 hours as needed. You may alternate between the 2 medications every 3 hours 2. If a narcotic has been prescribed take as directed only for breakthrough pain For Constipation: 1. Take Milk of Magnesia or MiraLax as needed for constipation Other: 1. You may shower daily. Do not scrub the incisions 2. Do not soak the incisions for 10 days 3. You may alternate ice and heat as needed for pain and swelling Wound Care: 1. Keep the incisions clean and dry Please call our office if you develop: 1. Fevers >101.5 2. Nausea or Vomiting 3. Worsening pain 4. Redness and thick discharge from the wounds If after hours please call the Hospital at and ask to speak to the on-call surgeon Referrals: Mavis Grullon MD [ [facility] STAFF PHYSICIAN] - 09/07/21 8:30 am Activity:: Activity as Tolerated Diet:: As Tolerated Discharge Orders Discharge Orders: Discharge Order (Routine); Ordered 08/29/21 Ordered By: Mavis Grullon
[2021-08-29 08:15] VITALS: BP 132/79; PULSE 78; RESP 16; TEMP 36.7; O2SAT 96
--- NOTE | 2021-08-29 08:32 | W.ANESPRE ---
General Info Date of Service Date Performed: 08/29/21 Height: 6 ft Weight: 103.7 kg Body Mass Index (BMI): 31.0 Surgical Procedure: Operation Date: 08/29/21 09:40 Proposed Procedure Side Surgeon p Excision Lesion Posterior Scalp Mavis Grullon MD Meds Allergies and Home Medications Allergies Allergy/AdvReac Type Severity Reaction Status Date / Time No Known Allergies Allergy Verified 08/29/21 08:19 Home Medication Medication Instructions Recorded nitroglycerin 0.4 mg sublingual 0.4 mg SUBLINGUAL PRN PRN 12/13/13 tablet sildenafil 50 mg tablet (Viagra) 100 mg PO PRN PRN 12/13/13 glimepiride 4 mg tablet 1 tab PO DAILY 05/30/14 rosuvastatin 10 mg tablet (Crestor) 40 mg PO DAILY #30 tab 10/09/16 amlodipine 10 mg tablet 10 mg PO DAILY 04/01/18 dulaglutide 0.75 mg/0.5 mL 1.5 mg SC QWEEK 04/01/18 subcutaneous pen injector (Trulicity) carvedilol 25 mg tablet 25 mg PO BID #180 tab 04/06/19 chlorthalidone 25 mg tablet 50 mg PO DAILY 11/08/20 insulin detemir U-100 100 unit/mL 75 - 80 unit SUBCUT QAM 11/08/20 (3 mL) subcutaneous pen (Levemir FlexTouch U-100 Insulin) losartan 100 mg tablet 100 mg PO DAILY 11/08/20 naloxone 4 mg/actuation nasal 1 spray INTRANASAL PRN PRN 11/08/20 spray (Narcan) aspirin 81 mg tablet,delayed 81 mg PO DAILY 04/24/21 release (Adult Low Dose Aspirin) hydrocodone 10 mg-acetaminophen 1 tab PO Q8H PRN 04/24/21 325 mg tablet metformin 850 mg tablet 850 mg PO BID tab 04/24/21 Current Visit Medications: Current Medications Generic Name Dose Route Start Last Admin Trade Name Freq PRN Reason Stop Dose Admin Ringer's Solution 1,000 mls @ 80 mls/hr 08/29/21 06:00 IV 09/27/21 23:59 INFUSION YUNI Cefazolin Sodium/Dextrose 2 gm in 50 mls @ 100 mls/hr 08/29/21 06:00 Ancef Duplex IVPB 09/27/21 23:59 PREOP YUNI Ondansetron HCl 4 mg/ Sodium 52 mls @ 200 mls/hr 08/29/21 06:46 Chloride IVPB Q6H PRN PRN IV Miscellaneous Supplies 1 each 08/29/21 06:00 Iv Access IV 09/27/21 23:59 DIRECTED YUNI Sodium Chloride 0 ml 08/29/21 06:00 Normal Saline Flush 10 Ml Syr IV 09/27/21 23:59 PRN PRN Sodium Chloride 0 ml 08/29/21 06:00 Normal Saline 10 Ml Vial IJ 09/27/21 23:59 DIRECTED PRN Sterile Water 0 ml 08/29/21 06:00 Water,Injection,Sterile 10 Ml Vial IJ 09/27/21 23:59 DIRECTED PRN Tramadol HCl 50 mg 08/29/21 06:46 Tramadol 50 Mg Tab PO Q6H PRN PRN Pain PFSH Active Problems Active Problems: Problem Status Onset Code Diabetes mellitus E11.9 Chest pain R07.9 CAD (coronary artery disease) I25.10 Scalp cyst L72.9 Scalp mass R22.0 Medical History Medical History Cervical radiculopathy Diabetic neuropathy Erectile dysfunction HLD (hyperlipidemia) HTN (hypertension) Lumbago with sciatica, left side PAD (peripheral artery disease) Unstable angina Pt. states it was gas Medical History Comments:: Last seen by cardiology 04/2021 for regular f/u Surgical History Surgical History H/O heart artery stent (~05/2016) MATTHEW to RCA x - F/U with cardiology @ [facility] – [place] 04/2021 History of cholecystectomy Hx of endarterectomy (~1998) left common femoral S/P femoral-popliteal bypass surgery S/P right rotator cuff repair Tobacco Smoking/Tobacco Use Status: Former Tobacco Use Alcohol Alcohol Intake: never Substance Use Substance use: Never Substance use type: does not use Vital Signs and Lab Results Vital Signs Most Recent Vital Signs in EMR: Most Recent Vital Signs Temp Pulse Resp BP Pulse Ox 36.7 C 78 16 132/79 96 08/29/21 08:15 08/29/21 08:15 08/29/21 08:15 08/29/21 08:15 08/29/21 08:15 Point of Care Results Point of Care Results: Finger Stick Blood Glucose 149 08/29/21 08:05 Lab Results Blood Type / Crossmatch: No Data to Display Complete Blood Count: No Data to Display Complete Metabolic Panel: No Data to Display Liver Function Panel: No Data to Display Coagulation Panel: No Data to Display Cardiac Panel: No Data to Display Arterial Blood Gas: No Data to Display Venous Blood Gas: No Data to Display Pancreas Panel: No Data to Display Thyroid Panel: No Data to Display Infectious Disease: Coronavirus (COVID-19)(PCR) Negative (Negative) 08/27/21 08:40 08/27/21 Coronavirus 2019 Source Nasal/Nares 08/27/21 08:40 08/27/21 Blood Cultures: No Data to Display Toxicology Panel: No Data to Display Imaging and Studies Imaging and Studies Study information below may be from another EMR and interpreted by another provider. Please see original notes in EMR for more complete details. EKG Summary: 10/2020: sinus. [place] >220 ms Stress Test Summary: 03/2019: 9.5 METS, no evidence of ischemia on ECG. No evidence of ischemia on imaging. Echocardiogram Summary: 10/2020: LVEF 55%, no WMA. normal RvFxn, PAS 19 mmhg. no significant valve disease. Cardiac Catheterization Summary: 01/2021: left circ 50% stenosis. Anesthesia Assessment and Plan Anesthesia History Personal History: No History of Anesthesia Complications Family History: No Family History of Anesthesia Complications Exercise Tolerance Exercise Tolerance: Metabolic Equivalents>4 Pertinent Negatives Pertinent Negatives: No Symptoms of GERD, No Major Cardiovascular Symptoms or Complaints (Stents x 2 2016), No Major Pulmonary Symptoms or Complaints and No History of CVA/TIA Cardiac & Pulmonary Exam Cardiac Exam: Normal S1/S2 Heart Sounds Pulmonary Exam: Clear Bilateral Breath Sounds Implantable Cardiac Device Does patient have a Pacemaker or an ICD?: No Airway Exam Known Difficult Airway: No Mallampati Class: 1 Mouth Opening: Normal (> 3cm) Thyromental Distance: Greater than 3 cm Neck Range of Motion: Full ROM Neck Circumference: Thick Teeth Condition: Removable Dentures/Plates Upper and Edentulous ASA Classification ASA Score: ASA 2 Emergency Case?: No NPO Status NPO Status: NPO Clears >2 hours, Solids >8 hours Anesthesia Plan Resuscitation Status: Full Code Anesthesia Technique: General Anesthesia Airway Planned: Natural Airway Monitors Used: Standard Monitors
[2021-08-29 08:49] VITALS: BMI 30.5
[2021-08-29] MEDS: Lactated Ringers 1,000 ML 80 ML IV (09:00)
[2021-08-29] MEDS: ceFAZolin 2 GM/50 ML BAG IVPB (09:05)
--- NOTE | 2021-08-29 09:40 | GANGLION_PTH ---
PATIENT: Rich Otero LOC: [facility] U#:[id number] AGE/SX: 66/M ROOM: RE08/29/[address]: Mavis Grullon MD : [id number] BED: DIS: 08/29/2021 SPEC #: [id number] RECD: 08/29/21 12:50 STATUS: MARTINEZ REAlirio #: [id number] DAVID: 08/29/21 09:[address]: Mavis Grullon DEPT: Surgical Specimen RECD BY: Ema Joel ENTERED: 08/29/21 12:52 SP TYPE: Ganglion OTHR DR: Ty Lynn Tissues: 1 - GANGLION CYST Procedures: GROSS AND MICRO LEVEL 4 IMMUNOPEROXIDASE STAIN Comments: [id number]
[2021-08-29 10:00] VITALS: BP 109/82; PULSE 86; RESP 16; TEMP 36.4; O2SAT 97
[2021-08-29] MEDS: Ketorolac 15 MG/ML VIAL IVP (10:17)
--- NOTE | 2021-08-29 10:26 | W.ANESPOSTOP ---
Postoperative Evaluation Date, Time and Location Date Performed: 08/29/21 Time Performed: 10:26 Patient Location: Day Surgery Unit Vital Signs Most Recent Imported Vital Signs: Most Recent Vital Signs Temp Pulse Resp BP Pulse Ox 36.4 C L 86 16 109/82 97 08/29/21 10:00 08/29/21 10:00 08/29/21 10:00 08/29/21 10:00 08/29/21 10:00 Pain Score Most Recent Pain Score: Most Recent Pain Score Pain Level 3 08/29/21 10:00 Assessment Mental Status: Awake (Alert & Oriented to Patient Baseline) Airway and Respiratory Function: Patent airway with normal (patient baseline) respiratory exam Cardiovascular Function: Hemodynamically Stable Hydration Status: Adequately Hydrated Nausea & Vomiting: No Nausea or Vomiting Pain: Pain is tolerable per patient Peripheral Nerve Block: Patient did not receive a nerve block
[2021-08-29 10:28] VITALS: BP 127/73; PULSE 81; RESP 16; TEMP 36.7; O2SAT 95
== END 2021-08-29 10:54 | disposition home or self-care (01) ==
LOC: SUR 07:47
PROVIDERS: PCP Internal Medicine; Visit Provider Surgery
PROC: (CPT 11423; principal; 2021-08-29 09:30)
DX: C44.49 Other specified malignant neoplasm of skin of scalp and neck (principal); E11.40 Type 2 diabetes mellitus with diabetic neuropathy, unspecified; Z79.4 Long term (current) use of insulin; Z79.84 Long term (current) use of oral hypoglycemic drugs; I25.10 Atherosclerotic heart disease of native coronary artery without angina pectoris; I10 Essential (primary) hypertension; E78.5 Hyperlipidemia, unspecified
CPT/HCPCS: 11423; 12032; 88305; 88304; 88361; J0690; J1885; J2250; J2405; J2704

== ENCOUNTER → 2021-09-07 08:13 | Outpatient (BNVA) | payer MEDICARE, SELFPAY | PROVIDERS: PCP Internal Medicine; Referring Provider Internal Medicine; Visit Provider Surgery | DX: C44.49 Other specified malignant neoplasm of skin of scalp and neck (principal) ==

== ENCOUNTER 2021-12-04 18:59 | Outpatient (REF) | payer MEDICARE, SELFPAY ==
[2021-12-04 20:20] LABS: BUN 16 mg/dL (7-18); CREATININE 0.8 mg/dL (0.70-1.30); Calcium 9.3 mg/dL (8.5-10.1); Chloride 99 mmol/L (98-107); Glucose 164 mg/dL (74-106); Potassium 3.9 mmol/L (3.5-5.1); Sodium 137 mmol/L (136-145)
[2021-12-05 17:58] LABS: PSA, Screening 5.9 ng/mL (<=4.5)
== END 2021-12-04 19:00 | disposition home or self-care (01) ==
LOC: NCHCN 18:59
PROVIDERS: PCP Internal Medicine; Visit Provider Physician Assistant
DX: E11.9 Type 2 diabetes mellitus without complications (principal); R35.0 Frequency of micturition; Z12.5 Encounter for screening for malignant neoplasm of prostate
CPT/HCPCS: 80048; 84153; 87077; 87086; 87186

== ENCOUNTER 2022-02-08 19:12 | Outpatient (REF) | payer MEDICARE, SELFPAY ==
[2022-02-11 12:16] LABS: PSA, Diagnostic 5.4 ng/mL (<=4.5)
== END 2022-02-08 19:13 | disposition home or self-care (01) ==
LOC: NCHCN 19:12
PROVIDERS: PCP Internal Medicine; Visit Provider Physician Assistant
DX: R97.20 Elevated prostate specific antigen [PSA] (principal)
CPT/HCPCS: 84153

== ENCOUNTER 2022-08-19 18:53 | Outpatient (REF) | payer MEDICARE, SELFPAY ==
[2022-08-19 20:51] LABS: COMMENT (LAB VIEW ONLY) 41.86 mg/dL; Microalb ug/mg Crea 115.9 ug/mg Cr
[2022-08-19 21:34] LABS: ALT 35 U/L (16-63); BUN 14 mg/dL (7-18); CREATININE 0.8 mg/dL (0.70-1.30); Calcium 9.7 mg/dL (8.5-10.1); Calculated LDL 23 mg/dL (<100); Chloride 97 mmol/L (98-107); Cholesterol 95 mg/dL (<200); Estimated GFR 97.61 (mL/min/1.73m2); Glucose 113 mg/dL (74-106); HDL Cholesterol 29 mg/dL (40-60); Potassium 3.8 mmol/L (3.5-5.1); Sodium 135 mmol/L (136-145); Triglyceride 218 mg/dL (<150)
[2022-08-19 22:33] LABS: Creatine Kinase 206 U/L (39-308)
[2022-08-20 19:24] LABS: PSA, Screening 6.4 ng/mL (<=4.5)
== END 2022-08-19 18:54 | disposition home or self-care (01) ==
LOC: NCHCN 18:53
PROVIDERS: PCP Internal Medicine; Visit Provider Internal Medicine
DX: I10 Essential (primary) hypertension (principal); E11.9 Type 2 diabetes mellitus without complications; R97.20 Elevated prostate specific antigen [PSA]; Z12.5 Encounter for screening for malignant neoplasm of prostate
CPT/HCPCS: 80048; 80061; 82550; 84153; 82043; 82570; 84460

== ENCOUNTER 2022-10-15 09:30 | Outpatient (CLI) | payer MEDICARE, SELFPAY ==
[2022-10-15 09:48] LABS: HCT 40.2 % (40.0-50.0); HGB 13.8 g/dL (13.5-17.5); MCH 29.2 pg (27.0-33.0); MCHC 34.3 % (32.0-36.0); MCV 85 fL (80-95); Platelet Count 273 10^3/uL (130-400); RBC 4.72 10^6/uL (4.36-5.78); RDW-SD 46.7 fL; WBC 9.64 10^3/uL (4.4-10.8)
[2022-10-15 09:54] LABS: ESR 13 mm/hr (0-20)
[2022-10-15 10:21] LABS: C-Reactive Protein 0.07 mg/dL (0.0-0.3)
[2022-10-17 12:01] LABS: TB Interpretation Negative (Negative)
== END 2022-10-15 09:31 | disposition home or self-care (01) ==
LOC: LBO 09:30
PROVIDERS: PCP Internal Medicine; Visit Provider Internal Medicine
DX: L53.9 Erythematous condition, unspecified (principal)
CPT/HCPCS: 36415; 85027; 85652; 86140; 86480

== ENCOUNTER 2022-10-15 10:12 | Outpatient (CLI) | payer MEDICARE, SELFPAY ==
--- NOTE | 2022-10-15 09:55 | DI.RAD_ITS ---
Exam(s) XR CHEST 2V PA LATERAL EXAM: XR CHEST 2V PA LATERAL CLINICAL HISTORY: ERYTHEMA NODOSUM, L52 TECHNIQUE: 2D digital imaging was performed. COMPARISON: CR XR CHEST 2V PA LATERAL from 11/08/2020 FINDINGS: HEART: Normal size. Aorta: Not dilated. PULMONARY VASCULATURE: Normal. LUNGS: Clear. PLEURAL SPACE: No pleural effusion or pneumothorax. BONE:Prominent osteophytes in the spine. No compression fractures. IMPRESSION: No acute abnormality. DATA REPOSITORY: RADIATION DOSE DELIVERED:
== END 2022-10-15 10:32 ==
LOC: DI 10:13
PROVIDERS: PCP Internal Medicine; Visit Provider Internal Medicine
DX: L52 Erythema nodosum (principal)
CPT/HCPCS: 71046

== ENCOUNTER → 2022-12-05 08:46 | Outpatient (BNVA) | payer MEDICARE, SELFPAY | PROVIDERS: PCP Internal Medicine; Referring Provider Internal Medicine; Visit Provider Nurse Practitioner Gerontology | DX: N40.1 Benign prostatic hyperplasia with lower urinary tract symptoms (principal); R39.89 Other symptoms and signs involving the genitourinary system; R97.20 Elevated prostate specific antigen [PSA]; E11.9 Type 2 diabetes mellitus without complications | CPT/HCPCS: 36415; 51798; 81003; 99214 ==

== ENCOUNTER 2022-12-05 10:00 | Outpatient (REF) | payer MEDICARE, SELFPAY ==
[2022-12-05 18:56] LABS: PSA, Diagnostic 7.3 ng/mL (<=4.5)
== END 2022-12-05 10:01 | disposition home or self-care (01) ==
LOC: LBN 10:00
PROVIDERS: PCP Internal Medicine; Visit Provider Nurse Practitioner Gerontology
DX: N40.1 Benign prostatic hyperplasia with lower urinary tract symptoms (principal); R97.20 Elevated prostate specific antigen [PSA]
CPT/HCPCS: 84153

== ENCOUNTER → 2023-01-29 12:08 | Outpatient (BNVA) | payer MEDICARE, SELFPAY | PROVIDERS: PCP Internal Medicine; Referring Provider Internal Medicine; Visit Provider Nurse Practitioner Gerontology | DX: N40.1 Benign prostatic hyperplasia with lower urinary tract symptoms (principal); R35.1 Nocturia; R97.20 Elevated prostate specific antigen [PSA] | CPT/HCPCS: 99214 ==

== ENCOUNTER → 2023-02-20 08:43 | Outpatient (BNVA) | payer MEDICARE, SELFPAY | PROVIDERS: PCP Internal Medicine; Referring Provider Internal Medicine; Visit Provider Physical Therapy Assistant | DX: Z12.11 Encounter for screening for malignant neoplasm of colon (principal) ==

== ENCOUNTER 2023-03-03 06:07 | Day surgery (SDC) | payer MEDICARE, SELFPAY ==
--- NOTE | 2023-03-02 15:50 | PDOC.DSDIS_ITS ---
Date of service: 03/03/23 Time of Service: 09:32 Discharge Plan Disposition Patient Disposition: Home Condition: Good Discharge Details Reason For Visit: prostate biopsy Attending Provider: Gerald Gama Primary Care Provider: Ty Lynn [place] Meds and New Rx's Prescriptions: Continued levofloxacin 500 mg tablet 500 mg PO DAILY Qty: 3 0RF Rx Instructions: Take 1 tab the day before the procedure, one the day of the procedure, and 1 tab the day after the procedure. carvedilol 25 mg tablet 25 mg PO BID Qty: 180 6RF Rx Instructions: must administer with a meal/food sildenafil [Viagra] 50 MG tablet 100 mg PO PRN PRN nitroglycerin 0.4 MG tablet, sublingual 0.4 mg Sublingual PRN PRN Patient Comments: no longer has rosuvastatin [Crestor] 10 MG tablet 40 mg PO DAILY Qty: 30 amlodipine 10 mg tablet 10 mg PO DAILY metformin 850 mg tablet 850 mg PO BID hydrocodone-acetaminophen 10-325 mg tablet 1 tab PO Q8H PRN aspirin [Adult Low Dose Aspirin] 81 mg tablet,delayed release (DR/EC) 81 mg PO DAILY lorazepam 0.5 mg tablet 0.5 mg PO DAILY PRN (Reason: pre-medication for MRI) Qty: 2 0RF Rx Instructions: Take one tab 30 mins prior to MRI. May repeat right before MRI if needed. 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 hydrocodone-acetaminophen 10-325 mg tablet 1 tab PO TID PRN Rx Instructions: for sciatic pain Ozempic 0.25 mg or 0.5 mg (2 mg/3 mL) pen injector 1 mg subcut QWEEK losartan 100 mg Tablet 100 mg PO DAILY naloxone [Narcan] 4 mg/actuation [place],Non-Aerosol 1 spray INTRANASAL PRN PRN chlorthalidone 25 mg tablet 50 mg PO DAILY Levemir FlexTouch U100 Insulin 100 unit/mL (3 mL) insulin pen 100 unit SUBCUT QAM Rx Instructions: pt takes a varied amount base on am fs. range is usually 60-90 Discharge Instructions Additional Instructions: take your last antibiotic pill tomorrow follow up 1 to 2 weeks for pathology resultscall with fevers, chills, burning with urination Rich, I was able to complete your colonoscopy today without any difficulty. I did find several polyps. 2 of these polyps were quite large. I was able to remove all of the polyps completely. I will have them all tested, and be in touch with the pathology report once it is available. Based on the size of the polyps that I found this time, as well as the number, my inclination is to repeat your colonoscopy in 1 year. But we can make a final decision once the pathology report is available. 1. If tolerated, consume a soft, low fiber diet for 1-2 days. 2[address] Do not drive, drink alcohol, operate machinery, make critical decisions, or do activities that require coordination or balance for 24 hours. 3. Because air was put into your colon during the procedure, expelling air from your rectum (passing gas or farting) is normal. 4. You may not have a bowel movement for 1-3 days because of the colonoscopy prep. This is normal. 5. Go directly to the emergency room if you notice any of the following: Develop chills (warm to touch), or if you have a thermometer and your temperature is above 101 Difficulty breathing or difficultly swallowing Persistent vomiting Severe abdominal pain, other than gas cramps Severe chest pain Black, tarry stools Any bleeding ? exceeding one tablespoon 6. Call your physician if the site where your intravenous was started becomes red, swollen, painful, and warm to touch. 7. Your physician has reviewed your pre-procedure medications. Please continue to take those medications as previously ordered. You will be given specific information/education regarding any changes to your medications before leaving. Activity:: Activity as Tolerated Shower/Bathe:: 24 hours Diet:: As Tolerated Discharge Orders Discharge Orders: Discharge Order (Routine); Ordered 03/03/23 Ordered By: Gerald Gama DS: Diagnosis Discharge Diagnosis (1) Screen for colon cancer: Status: Acute Asessment and Plan: Follow-up on polypectomy results
--- NOTE | 2023-03-02 15:52 | COLE_ITS ---
Date of service: 03/03/23 Time of Service: 09:34 Colonoscopy Report Date of procedure: 03/03/23 Pre-op diagnosis general: screening colonoscopy Post-op diagnosis procedure note: other (Colon and rectal polyps) Procedure: colonoscopy with polypectomy Surgeon: Subhash Otero Anesthesia Type: General:No Airway Estimated blood loss (mL): 15 Pathology: other (Rectal polyps x3, 0.25 cm polyp at 25 cm, 1 cm polyp at 45 cm, 1 cm polyp at 120 cm) Complications: None Disposition: same day Indications: Rich is 67 years old and he needs a screening colonoscopy Prep: Miralax/Dulcolax Procedure Start Time: 08:27 Procedure End Time: 09:12 Retraction Time: 29 Findings: Rectal polyps x3, 0.25 cm polyp, 1 cm polyp at 45 cm, 1 cm polyp at 120 cm Procedure Description: I joined the operating room team after the conclusion of Dr. Gama's ultrasound- guided prostate biopsies. Mr. Otero was already in the left lateral decubitus position. I began by performing an external anorectal exam.? Perineum and skin were normal, as was the anal verge.? There was no evidence of external hemorrhoids.? Next, I performed a digital rectal exam.? This was normal.? Next, I advanced a colonoscope into the rectal vault.? I performed retroflexion.? Ther e were no significant hemorrhoids.? I performed cold forcep polypectomy to remove 3 sessile rectal polyps. Each polyp was less than 0.25 cm. Using insufflation, I then advanced the colonoscope beyond the rectal folds and into the sigmoid colon before advancing towards the cecum.? I passed 2 large polyps. The scope was noted to be in the cecum by identification of the ileocecal valve and appendiceal orifice.? I then began withdrawing the colonoscope using repeated irrigation as necessary for full evaluation of the colonic mucosa. Around 120 cm from the anal verge within the ascending colon with a 1 cm pedunculated polyp. This was removed with energized snare polypectomy. It was too large for suction removal, therefore it was back out along the length of the colon. I returned the camera into the colon, and advanced back up to the polypectomy site. I began retracting the scope once again. Similarly, around 45 cm from the anal verge was another 1 cm pedunculated polyp. This was also removed with energized snare polypectomy. There was no significant bleeding from any of the sites. Around 25 cm from the anal verge I identified another polyp. ?It appeared sessile in character and was less than 0.25 cm. ?I was able to remove this with a cold forcep polypectomy. ?I examined the site, and there was minimal bleeding. ?Once this was completed, I continued to withdraw the scope an d examine the remainder of the colonic mucosa. Once the scope was withdrawn to the level of the rectum, great care was taken to examine portions of the rectal folds.? Finally, the scope was withdrawn and the patient was brought to the same-day surgery recovery unit as the anesthetic wore off. ?The findings and instructions were shared with the patient prior to discharge. Stevenson Bowel Prep Stevenson Bowel Prep Right Colon: 3 Left Colon: 3 Transverse Colon: 3 Total Score: 9
[2023-03-03 06:20] VITALS: BP 111/59; PULSE 74; RESP 16; TEMP 36.4; O2SAT 93
[2023-03-03] MEDS: Lactated Ringers 1,000 ML 80 ML IV (06:52)
--- NOTE | 2023-03-03 06:55 | HPE_ITS ---
Date of service: 03/03/23 Time of Service: 06:55 Assessment and Plan Assessment and plan (1) Rising PSA level: Status: Acute Assessment and plan: For ultrasound guided biopsy of prostate. We discussed the potential risks of urosepsis, blood in the urine, blood from the rectum and blood in the semen. He has taken his antibiotic prep and has 1 additional dose of Levaquin to take tomorrow. History of Present Illness History of Present Illness Chief Complaint: Elevated PSA Narrative: This is a 67-year-old gentleman who has an elevated PSA of 5.4 ng/mL. His multiparameter prostate MRI shows a PI-RADS 5 lesion in the left transition zone. He presents for ultrasound-guided biopsy of the prostate. Review of Systems Narrative: No fevers or chills No vision change or dysphasia Diabetes. No thyroid dysfunction No shortness of breath, cough or hemoptysis No chest pain or palpitations No nausea, vomiting, hepatitis, ulcers, jaundice, diarrhea or constipation No seizures, strokes or peripheral neuropathy No bleeding disorders or anemia No gout PFSH All Active Problems (Updated 03/02/23 @ 15:51 by Subhash Otero MD) Screen for colon cancer (Acute) Rising PSA level (Acute) Diabetes mellitus (Chronic) Chest pain (Acute) CAD (coronary artery disease) (Chronic) Scalp cyst (Acute) Scalp mass (Acute) Medical History BPH loc w urin obs/LUTS Cervical radiculopathy Diabetic neuropathy Erectile dysfunction HLD (hyperlipidemia) HTN (hypertension) Lumbago with sciatica, left side PAD (peripheral artery disease) Unstable angina Pt. states it was gas Surgical History H/O heart artery stent (~05/2016) MATTHEW to RCA x 2-2016- F/U with cardiology @ [facility] [place] 04/2021 History of cholecystectomy Hx of endarterectomy (~1998) left common femoral S/P femoral-popliteal bypass surgery S/P right rotator cuff repair Social History (Updated 02/21/23 @ 14:23 by CLARK Darden) Smoking/Tobacco Use Status: Former Tobacco Use Quit Date: 04/21/85 Pack-years: 20 Smoking risk assessment performed?: Yes Alcohol Intake: never Drug use: Socially Substance use type: marijuana Details: Vape Housing: house Current gender identity: male What type of physical activity do you participate in: walking and additional Details: walks 2-3 miles every other day Frequency: 3-4 times per week Additional Social history: Unable to asses privately. Meds Allergies and Home Medications Allergies Allergy/AdvReac Type Severity Reaction Status Date / Time No Known Allergies Allergy Verified 02/28/23 11:57 Home Medications Medication Instructions Recorded Confirmed Type nitroglycerin 0.4 mg sublingual 0.4 mg sublingual PRN PRN 12/13/13 03/03/23 History tablet sildenafil 50 mg tablet (Viagra) 100 mg PO PRN PRN 12/13/13 03/03/23 History rosuvastatin 10 mg tablet (Crestor) 40 mg PO DAILY #30 tabs 10/09/16 03/03/23 History amlodipine 10 mg tablet 10 mg PO DAILY 04/01/18 03/03/23 History carvedilol 25 mg tablet 25 mg PO BID #180 tabs 04/06/19 03/03/23 Rx losartan 100 mg tablet 100 mg PO DAILY 11/08/20 03/03/23 History naloxone 4 mg/actuation nasal 1 spray intranasal PRN PRN 11/08/20 03/03/23 History spray (Narcan) aspirin 81 mg tablet,delayed 81 mg PO DAILY 04/24/21 02/28/23 History release (Adult Low Dose Aspirin) hydrocodone 10 mg-acetaminophen 1 tab PO Q8H PRN 04/24/21 02/28/23 History 325 mg tablet metformin 850 mg tablet 850 mg PO BID 04/24/21 03/03/23 History lorazepam 0.5 mg tablet 0.5 mg PO DAILY PRN pre-medication 12/09/22 03/03/23 Rx for MRI #2 tabs levofloxacin 500 mg tablet 500 mg PO DAILY #3 tabs 01/29/23 03/03/23 Rx hydrocodone 10 mg-acetaminophen 1 tab PO TID PRN 02/13/23 03/03/23 History 325 mg tablet chlorthalidone 25 mg tablet 50 mg PO DAILY 02/20/23 03/03/23 History insulin detemir U-100 100 unit/mL 100 unit subcut QAM 02/20/23 03/03/23 History (3 mL) subcutaneous pen (Levemir FlexTouch U-100 Insulin) semaglutide 0.25 mg or 0.5 mg (2 1 mg subcut QWEEK 02/20/23 03/03/23 History mg/3 mL) subcutaneous pen injector (Ozempic) Exam Const General: cooperative Neck Neck: supple Resp Effort & Inspection: normal respiratory effort Auscultation: clear to auscultation bilaterally Cardio Rate: regular rate Rhythm: regular rhythm GI Palpation: soft and no masses Neuro General: patient alert, patient awake and patient oriented x3 Results Last Vital Signs Temp 36.4 C L 03/03/23 06:20 Pulse 74 03/03/23 06:20 Resp 16 03/03/23 06:20 BP 111/59 L 03/03/23 06:20 Pulse Ox 93 03/03/23 06:20 Time Spent Time spent with Patient: <40 minutes Time was spent: other
--- NOTE | 2023-03-03 07:00 | ANES.PREOP_ITS ---
General Info Date of Service Date Performed: 03/03/23 Height: 6 ft Weight: 101.2 kg Body Mass Index (BMI): 30.2 Surgical Procedure: Operation Date: 03/03/23 07:40 Proposed Procedure Side Surgeon p Prostate Biopsy/Ultrasound Gerald Gama MD s Colonoscopy Subhash Otero MD Meds Allergies and Home Medications Allergies Allergy/AdvReac Type Severity Reaction Status Date / Time No Known Allergies Allergy Verified 02/28/23 11:57 Home Medication Medication Instructions Recorded nitroglycerin 0.4 mg sublingual 0.4 mg sublingual PRN PRN 12/13/13 tablet sildenafil 50 mg tablet (Viagra) 100 mg PO PRN PRN 12/13/13 rosuvastatin 10 mg tablet (Crestor) 40 mg PO DAILY #30 tabs 10/09/16 amlodipine 10 mg tablet 10 mg PO DAILY 04/01/18 carvedilol 25 mg tablet 25 mg PO BID #180 tabs 04/06/19 losartan 100 mg tablet 100 mg PO DAILY 11/08/20 naloxone 4 mg/actuation nasal 1 spray intranasal PRN PRN 11/08/20 spray (Narcan) aspirin 81 mg tablet,delayed 81 mg PO DAILY 04/24/21 release (Adult Low Dose Aspirin) hydrocodone 10 mg-acetaminophen 1 tab PO Q8H PRN 04/24/21 325 mg tablet metformin 850 mg tablet 850 mg PO BID 04/24/21 lorazepam 0.5 mg tablet 0.5 mg PO DAILY PRN pre-medication 12/09/22 for MRI #2 tabs levofloxacin 500 mg tablet 500 mg PO DAILY #3 tabs 01/29/23 hydrocodone 10 mg-acetaminophen 1 tab PO TID PRN 02/13/23 325 mg tablet chlorthalidone 25 mg tablet 50 mg PO DAILY 02/20/23 insulin detemir U-100 100 unit/mL 100 unit subcut QAM 02/20/23 (3 mL) subcutaneous pen (Levemir FlexTouch U-100 Insulin) semaglutide 0.25 mg or 0.5 mg (2 1 mg subcut QWEEK 02/20/23 mg/3 mL) subcutaneous pen injector (Ozempic) Current Visit Medications: Current Medications Generic Name Dose Route Start Last Admin Trade Name Freq PRN Reason Stop Dose Admin Hyoscyamine Sulfate 0.125 mg 03/02/23 15:54 Hyoscyamine 0.125 Mg Sl/Oral/Chew SL 04/01/23 15:53 DIRECTED PRN Ringer's Solution 1,000 mls @ 80 mls/hr 03/03/23 06:00 03/03/23 06:52 IV 03/03/23 23:59 80 mls/hr INFUSION YUNI Administration IV Miscellaneous Supplies 1 each 03/03/23 06:00 Iv Access IV 03/03/23 23:59 DIRECTED YUNI Ondansetron HCl 4 mg 03/02/23 15:54 Ondansetron 4 Mg/2 Ml Vial IVP 04/01/23 15:53 Q4H PRN PRN Nausea / Vomiting Sodium Chloride 0 ml 03/03/23 06:00 Normal Saline Flush 10 Ml Syr IV 03/03/23 23:59 PRN PRN Sodium Chloride 0 ml 03/03/23 06:00 Normal Saline 10 Ml Vial IJ 03/03/23 23:59 DIRECTED PRN Sterile Water 0 ml 03/03/23 06:00 Water,Injection,Sterile 10 Ml Vial IJ 03/03/23 23:59 DIRECTED PRN PFSH Active Problems Active Problems: Problem Status Onset Code Screen for colon cancer Z12.11 Rising PSA level R97.20 Diabetes mellitus E11.9 Chest pain R07.9 CAD (coronary artery disease) I25.10 Scalp cyst L72.9 Scalp mass R22.0 Medical History Medical History BPH loc w urin obs/LUTS Cervical radiculopathy Diabetic neuropathy Erectile dysfunction HLD (hyperlipidemia) HTN (hypertension) Lumbago with sciatica, left side PAD (peripheral artery disease) Unstable angina Pt. states it was gas Medical History Comments:: Last seen by cardiology 04/2021 for regular f/u Surgical History Surgical History H/O heart artery stent (~05/2016) MATTHEW to RCA x - F/U with cardiology @ [facility] [place] 04/2021 History of cholecystectomy Hx of endarterectomy (~1998) left common femoral S/P femoral-popliteal bypass surgery S/P right rotator cuff repair Tobacco Smoking/Tobacco Use Status: Former Tobacco Use Alcohol Alcohol Intake: never Substance Use Substance use: Socially Substance use type: marijuana Details: Vape Vital Signs and Lab Results Vital Signs Most Recent Vital Signs in EMR: Most Recent Vital Signs Temp Pulse Resp BP Pulse Ox 36.4 C L 74 16 111/59 L 93 03/03/23 06:20 03/03/23 06:20 03/03/23 06:20 03/03/23 06:20 03/03/23 06:20 Lab Results Blood Type / Crossmatch: No Data to Display Complete Blood Count: No Data to Display Complete Metabolic Panel: No Data to Display Liver Function Panel: No Data to Display Coagulation Panel: No Data to Display Cardiac Panel: No Data to Display Arterial Blood Gas: No Data to Display Venous Blood Gas: No Data to Display Pancreas Panel: No Data to Display Thyroid Panel: No Data to Display Infectious Disease: No Data to Display Blood Cultures: No Data to Display Toxicology Panel: No Data to Display Imaging and Studies Imaging and Studies Study information below may be from another EMR and interpreted by another provider. Please see original notes in EMR for more complete details. EKG Summary: 10/2020: sinus. PA >220 ms Stress Test Summary: 03/2019: 9.5 METS, no evidence of ischemia on ECG. No evidence of ischemia on imaging. Echocardiogram Summary: 10/2020: LVEF 55%, no WMA. normal RvFxn, PAS 19 mmhg. no significant valve disease. Cardiac Catheterization Summary: 01/2021: left circ 50% stenosis. Anesthesia Assessment and Plan Anesthesia History Personal History: No History of Anesthesia Complications Family History: No Family History of Anesthesia Complications Exercise Tolerance Exercise Tolerance: Metabolic Equivalents>4 Pertinent Negatives Pertinent Negatives: No Symptoms of GERD, No Major Cardiovascular Symptoms or Complaints and No Major Pulmonary Symptoms or Complaints Cardiac & Pulmonary Exam Cardiac Exam: Normal S1/S2 Heart Sounds Pulmonary Exam: Clear Bilateral Breath Sounds Implantable Cardiac Device Does patient have a Pacemaker or an ICD?: No Airway Exam Known Difficult Airway: No Mallampati Class: 1 Mouth Opening: Normal (> 3cm) Thyromental Distance: Greater than 3 cm Neck Range of Motion: Full ROM Neck Circumference: Thick Teeth Condition: Removable Dentures/Plates Upper and Edentulous ASA Classification ASA Score: ASA 3 Emergency Case?: No NPO Status NPO Status: NPO Clears >2 hours, Solids >8 hours Anesthesia Plan Resuscitation Status: Full Code Anesthesia Technique: General Anesthesia Airway Planned: Natural Airway Monitors Used: Standard Monitors Preoperative Comments:: Gluc check 140, held insulin and metformin this am
[2023-03-03 07:01] VITALS: BMI 30.2
--- NOTE | 2023-03-03 08:23 | PROST_PTH ---
PATIENT: Rich Otero LOC: [facility] U#:[id number] AGE/SX: 67/M ROOM: RE03/03/[address]: Gerald Gama MD : 1955 BED: DIS: 03/03/2023 SPEC #: [id number] RECD: 03/03/23 12:54 STATUS: [facility] #: [id number] DAVID: 03/03/23 08:[address]: Gerald Gama DEPT: Surgical Specimen RECD BY: Ema Joel ENTERED: 03/03/23 12:56 SP TYPE: PROST OTHR DR: Ty Lynn MD Tissues: 1 - PROSTATE NEEDLE BIOPSY 2 - PROSTATE NEEDLE BIOPSY 3 - PROSTATE NEEDLE BIOPSY 4 - PROSTATE NEEDLE BIOPSY 5 - PROSTATE NEEDLE BIOPSY 6 - PROSTATE NEEDLE BIOPSY 7 - PROSTATE NEEDLE BIOPSY 8 - PROSTATE NEEDLE BIOPSY 9 - PROSTATE NEEDLE BIOPSY 10 - PROSTATE NEEDLE BIOPSY 11 - PROSTATE NEEDLE BIOPSY 12 - PROSTATE NEEDLE BIOPSY Procedures: GROSS AND MICRO LEVEL 4 Comments: [id number]
--- NOTE | 2023-03-03 08:30 | BOWEL_PTH ---
PATIENT: Rich Otero LOC: [facility] U#:[id number] AGE/SX: 67/M ROOM: RE03/03/[address]: Gerald Gama MD : 1955 BED: DIS: 03/03/2023 SPEC #: [id number] RECD: 03/03/23 13:04 STATUS: [facility] #: [id number] DAVID: 03/03/23 08:[address]: Subhash Otero DEPT: Surgical Specimen RECD BY: Ema Joel ENTERED: 03/03/23 13:06 SP TYPE: Bowel OTHR DR[facility] T[facility]: 1 - BIOPSY BOWEL 2 - BIOPSY BOWEL 3 - BIOPSY BOWEL 4 - BIOPSY BOWEL Procedures: GROSS AND MICRO LEVEL 4 Comments: [id number]
[2023-03-03] MEDS: Lidocaine 1% Multi-Dose 10 ML VIAL (08:31)
--- NOTE | 2023-03-03 08:34 | W.PM.DSUDISC ---
Date of service: 03/03/23 Time of Service: 08:34 Discharge Plan Disposition Patient Disposition: Home Condition: Good Discharge Details Reason For Visit: prostate biopsy Attending Provider: Gerald Gama Primary Care Provider: Ty Lynn Chatsworth Meds and New Rx's Prescriptions: No Action levofloxacin 500 mg tablet 500 mg PO DAILY Qty: 3 0RF Rx Instructions: Take 1 tab the day before the procedure, one the day of the procedure, and 1 tab the day after the procedure. carvedilol 25 mg tablet 25 mg PO BID Qty: 180 6RF Rx Instructions: must administer with a meal/food sildenafil [Viagra] 50 MG tablet 100 mg PO PRN PRN nitroglycerin 0.4 MG tablet, sublingual 0.4 mg Sublingual PRN PRN Patient Comments: no longer has rosuvastatin [Crestor] 10 MG tablet 40 mg PO DAILY Qty: 30 amlodipine 10 mg tablet 10 mg PO DAILY metformin 850 mg tablet 850 mg PO BID hydrocodone-acetaminophen 10-325 mg tablet 1 tab PO Q8H PRN aspirin [Adult Low Dose Aspirin] 81 mg tablet,delayed release (DR/EC) 81 mg PO DAILY lorazepam 0.5 mg tablet 0.5 mg PO DAILY PRN (Reason: pre-medication for MRI) Qty: 2 0RF Rx Instructions: Take one tab 30 mins prior to MRI. May repeat right before MRI if needed. Must have dedicated local truck driver. hydrocodone-acetaminophen 10-325 mg tablet 1 tab PO TID PRN Rx Instructions: for sciatic pain Ozempic 0.25 mg or 0.5 mg (2 mg/3 mL) pen injector 1 mg subcut QWEEK losartan 100 mg Tablet 100 mg PO DAILY naloxone [Narcan] 4 mg/actuation Arnett,Non-Aerosol 1 spray INTRANASAL PRN PRN chlorthalidone 25 mg tablet 50 mg PO DAILY Levemir FlexTouch U100 Insulin 100 unit/mL (3 mL) insulin pen 100 unit SUBCUT QAM Rx Instructions: pt takes a varied amount base on am fs. range is usually 60-90 Discharge Instructions Additional Instructions: take your last antibiotic pill tomorrow follow up 1 to 2 weeks for pathology resultscall with fevers, chills, burning with urination Activity:: Activity as Tolerated Shower/Bathe:: 24 hours Diet:: As Tolerated Discharge Orders Discharge Orders: Discharge Order (Routine); Ordered 03/03/23 Ordered By: Gerald Gama DS: Diagnosis Discharge Diagnosis (1) Rising PSA level: Status: Acute
--- NOTE | 2023-03-03 08:39 | W.PM.OP ---
Date of service: 03/03/23 Time of Service: 08:39 Operative Note Operative Note DATE OF PROCEDURE: 03/03/23 PRE-OP DIAGNOSIS: elevated psa POST-OP DIAGNOSIS: same abnormal prostate MRI PROCEDURE: transrectal ultrasound guided biopsies of prostate SURGEON: Gerald Gama ANESTHESIA TYPE: Local By Surgeon and General:No Airway Refer to Anesthesia Record ESTIMATED BLOOD LOSS: 5 PATHOLOGY: other (12 laterally directed biopsies of prostate) COMPLICATIONS: None Patient was transported to: no change Patient's condition: stable Indications: This is a 67-year-old gentleman who has a history of an elevated PSA of 7.3 ng/mL. He had an abnormal prostate ultrasound which showed a PI-RADS 5 lesion in the left transition zone. He presents for ultrasound-guided biopsy of the prostate Findings: prostate volume 40 cc Procedure Description: The patient was given an antibiotic and mechanical bowel prep. He was brought to the OR on 03/03/2023. He was given general anesthesia without intubation and placed in the left lateral position. Transrectal imaging of the prostate was performed using a variable megahertz transducer. The prostate was imaged in transverse and longitudinal planes. The prostatic volume was calculated at 40 cc. The transition zone was slightly enlarged and contained multiple calcifications. No specific hypoechoic areas were seen in the peripheral zone. A periprosthetic nerve block was performed using 1% lidocaine. A total of 12 laterally directed biopsies were taken, labeled and sent to pathology for permanent section. The patient tolerated the procedure. He remained in the operating room for colonoscopy.
[2023-03-03 09:25] VITALS: BP 84/58; PULSE 65; RESP 16; TEMP 36; O2SAT 99
[2023-03-03 09:52] VITALS: BP 105/50; PULSE 70; RESP 16; TEMP 36.2; O2SAT 100
--- NOTE | 2023-03-03 10:11 | W.ANESPOSTOP ---
Postoperative Evaluation Date, Time and Location Date Performed: 03/03/23 Time Performed: 09:55 Patient Location: Day Surgery Unit Vital Signs Most Recent Imported Vital Signs: Most Recent Vital Signs Temp Pulse Resp BP Pulse Ox 36.2 C L 70 16 105/50 L 100 03/03/23 09:52 03/03/23 09:52 03/03/23 09:52 03/03/23 09:52 03/03/23 09:52 Pain Score Most Recent Pain Score: Most Recent Pain Score Pain Level 0 03/03/23 09:52 Assessment Mental Status: Awake (Alert & Oriented to Patient Baseline) Airway and Respiratory Function: Patent airway with normal (patient baseline) respiratory exam Cardiovascular Function: Hemodynamically Stable Hydration Status: Adequately Hydrated Nausea & Vomiting: No Nausea or Vomiting Pain: Pain is tolerable per patient (bowel cramping) Peripheral Nerve Block: Patient did not receive a nerve block
== END 2023-03-03 10:40 | disposition home or self-care (01) ==
PROVIDERS: Surgery; PCP Internal Medicine; Visit Provider Urology
PROC: (CPT 55700; principal; 2023-03-03 07:30)
PROC: 0DJD8ZZ Inspection of Lower Intestinal Tract, Via Natural or Artificial Opening Endoscopic (ICD-10-PCS; CPT 45378; 2023-03-03 07:30)
DX: C61 Malignant neoplasm of prostate (principal); E11.42 Type 2 diabetes mellitus with diabetic polyneuropathy; I25.10 Atherosclerotic heart disease of native coronary artery without angina pectoris; I10 Essential (primary) hypertension; Z12.11 Encounter for screening for malignant neoplasm of colon; D12.3 Benign neoplasm of transverse colon; D37.4 Neoplasm of uncertain behavior of colon
CPT/HCPCS: 55700; 45380; 45385; 76872; 88305; J2250; J2405

== ENCOUNTER 2023-03-03 10:03 | Day surgery (SDC) | payer MEDICARE, SELFPAY | END 2023-03-03 10:04 | disposition home or self-care (01) | LOC: SUR 05-05 10:03 | PROVIDERS: PCP Internal Medicine; Visit Provider Surgery | DX: Z53.9 Procedure and treatment not carried out, unspecified reason (principal) ==

== ENCOUNTER 2023-03-03 14:00 | Outpatient (CLI) | payer MEDICARE, SELFPAY | END 2023-03-03 14:01 | LOC: ORDER INT 05-02 14:00 | PROVIDERS: PCP Internal Medicine; Visit Provider Urology | DX: N40.1 Benign prostatic hyperplasia with lower urinary tract symptoms (principal); R97.20 Elevated prostate specific antigen [PSA] ==

== ENCOUNTER → 2023-03-25 10:50 | Outpatient (BNVA) | payer MEDICARE, SELFPAY | PROVIDERS: PCP Internal Medicine; Referring Provider Internal Medicine; Visit Provider Urology | DX: C61 Malignant neoplasm of prostate (principal) | CPT/HCPCS: 99443 ==

== ENCOUNTER → 2023-04-01 02:21 | Outpatient (CLI) | payer MEDICARE, SELFPAY ==
--- NOTE | 2023-04-01 07:45 | DI.NM_ITS ---
Exam(s) NM BONE SCAN WHOLE BODY GRP EXAM: ND BONE SCAN WHOLE BODY GRP CLINICAL HISTORY: baseline,PROSTATE CA,C61. TECHNIQUE: Injected Dose: 25 mCi Tc-99m MDP Delayed Images: 3 hours. COMPARISON: CT CT CHEST PE ABD PELVIS W from 11/08/2020 FINDINGS: Symmetric axial uptake. Bilateral renal excretion is identified. There is increased radiotracer uptak e seen in the L2 and L4 vertebral bodies. There is also increased radiotracer seen in the lower cerv ical spine probably C7. There is a single focus seen at the costochondral junction of the right 8th rib. The pelvis is obscured by the distended urinary bladder. The patient was unable to completely void. Probable degenerative uptake is seen in the shoulders, hands, knees and feet bilaterally. IMPRESSION: 1. Increased radiotracer uptake seen in the lower cervical and lumbar spine. Metastatic disease justine ot be excluded in these areas. CT and/or MRI correlation is recommended. 2. Limited evaluation of the pelvis due to radiotracer in the distended urinary bladder. DATA REPOSITORY:
== END ==
LOC: DI 02:21
PROVIDERS: PCP Internal Medicine; Visit Provider Urology
DX: C61 Malignant neoplasm of prostate (principal); R93.7 Abnormal findings on diagnostic imaging of other parts of musculoskeletal system
CPT/HCPCS: 78306

== ENCOUNTER → 2023-04-08 10:53 | Outpatient (BNVA) | payer MEDICARE, SELFPAY | PROVIDERS: PCP Internal Medicine; Referring Provider Internal Medicine; Visit Provider Urology | DX: C61 Malignant neoplasm of prostate (principal) | CPT/HCPCS: 99443 ==

== ENCOUNTER 2023-05-01 11:39 | Outpatient (CLI) | payer MEDICARE, SELFPAY ==
[2023-05-03 10:16] LABS: PSA, Ultrasensitive 8.6 ng/mL (<= 4.5)
== END 2023-05-01 11:40 | disposition home or self-care (01) ==
LOC: LBO 11:52
PROVIDERS: PCP Internal Medicine; Visit Provider Radiology Radiation Oncology
DX: C61 Malignant neoplasm of prostate (principal)
CPT/HCPCS: 36415; 84153

== ENCOUNTER 2023-08-18 17:39 | Outpatient (CLI) | payer MEDICARE, SELFPAY ==
[2023-08-19 17:35] LABS: PSA, Ultrasensitive 8.6 ng/mL (<= 4.5)
== END 2023-08-18 17:40 | disposition home or self-care (01) ==
LOC: LBO 17:46
PROVIDERS: PCP Internal Medicine; Visit Provider Urology
DX: R97.20 Elevated prostate specific antigen [PSA] (principal)
CPT/HCPCS: 36415; 84153

== ENCOUNTER → 2023-09-11 04:28 | Outpatient (CLI) | payer MEDICARE, SELFPAY ==
[2023-09-11] MEDS: Barium Sulfate 2% W/V-Berry Smoothie 450 ML BTL PO ×2 (09:27→09:28)
[2023-09-11 09:37] LABS: Estimated GFR 82.49 (mL/min/1.73m2)
[2023-09-11] MEDS: Normal Saline - Diluent 50 ML VIAL IJ (11:22)
[2023-09-11] MEDS: Omnipaque 350 MG/ML 500 ML BTL-Imaging package IJ (11:25)
--- NOTE | 2023-09-11 11:25 | DI.CT_ITS ---
Exam(s) CT ABD WO/ABD PEL W EXAM: CT ABD WO/ABD PEL W CLINICAL HISTORY: DISORDER OF PANCREAS,K86.9. TECHNIQUE: Imaging Protocol: Axial computed tomography images with coronal and sagittal reformatted images were created and reviewed CONTRAST MATERIAL: Intravenous: Omnipaque-350 100cc Oral: External contrast was also administered for bowel opacification. COMPARISON: CT CT CHEST PE ABD PELVIS W from 11/08/2020 FINDINGS: VISUALIZED LUNG BASES: No nodules nor pleural effusions evident. ABDOMEN: There is no ascites. LIVER: There is a small 3 millimeter hypodensity in the right hepatic lobe. Probably a small cyst or hemangioma. Another similar size hypodensity seen in the dome of the liver, probably a cyst or liberty ngioma. No obvious metastatic appearing lesions. There are mildly dilated ducts in left hepatic lob e. GALLBLADDER/BILIARY: Gallbladder is again noted to be surgically absent. CBD measures 8 mm at the le tico the pan hepatis an wider at the upper pancreatic head, measuring 1.6 cm diameter at this level. PANCREAS: Prominent calcification is again noted in the pancreatic head which is either within or imm ediately adjacent to the CBD. Total measurement for this calcification is 10 mm. Also appear to be calcification within the accessory pancreatic duct., this measuring 1.9 by 0.5 cm. Abnormal area of hypodensity in the uncinate process of the pancreas is again noted, measuring approximately 3 cm wide by 2.5 cm AP by 3 cm craniocaudal, slightly more prominent than previous CT study almost 2 years ago (October 2020) main pancreatic duct is not dilated. At the level of the pancreatic tail there is again noted previously described cystic lesion which measures approximately 1.7 x 1.1 cm, slightly larger than previous. Also at the body-tail junction of the pancreas is another subtle 1 cm area of hypodensity in the ante rior aspect of the gland. There is no peripancreatic lymphadenopathy nor fluid collections. There are no peripancreatic fluid collections. No evidence of vascular encasement. SPLEEN: Spleen is not enlarged. No obvious intrasplenic lesions. Splenic and portal veins are paten t ADRENALS: There are no significant adrenal masses. KIDNEYS:Again noted is a benign exophytic cyst off the posterior medial cortex of the left knee, davonte uring approximately 2.4 x 1.4 cm. No solid renal masses. No calculi. No hydronephrosis nor hydrour eter.. ABDOMINAL AORTA: Heavily calcified but without significant aneurysmal dilatation. And 1 level in the aorta the calcified intima as displaced medially which and is unchanged from previous. LYMPH NODES:No evidence of acute dissection. There is calcification of the common iliac arteries. 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 This aneurysm exhibits diameter of 2 cm. ABDOMINAL WALL: Anterior abdominal wall midline umbilical hernia which contains nonobstructed and non edematous small bowel loops. GI: There is no evidence of bowel obstruction, free air, nor abscess. PELVIS: GI: No evidence of appendicitis.No evidence of sigmoid diverticulitis. LYMPH NODES: There is no intrapelvic nor inguinal adenopathy. REPRODUCTIVE: Mildly enlarged prostate which is somewhat heterogeneous. URINARY BLADDER: Mildly thickened bladder wall noted OSSEOUS: No fractures. Increasing sclerosis noted on the right side of the symphysis pubis. IMPRESSION: 1. Compared to the prior CT scan of November 08, 2020 there is again noted prominent calcification within the pancreatic head which is either within or immediately adjacent to the CBD and some calcification also appears to be within 1 of the pancreatic ducts at this region. 2. Previously described area of abnormal hypodensity in the uncinate process is slightly increased in size, presently measuring approximately 3 x 2.5 x 3 cm. The previously described hypodensity in the pancreatic tail is also slightly increased in size and there appears to be a small new similar findi ng in the anterior pancreas at the junction of the body and tail. 3. Above findings are still suspicious for areas of neoplasm although given that almost 2 years has e lapsed since the prior CT scan (October 2020), there is a chance that these are benign findings. Recomm end follow-up contrast infused MRI with pancreatic lesion protocol and MRCP for added specificity. I feel that MRCP here would help differentiate the calcifications to be within the CBD or adjacent to the dilated CBD. 4. A few tiny hypodensities are noted in the liver which are probably benign. Doubtful for metastati c disease. Gallbladder is again noted be surgically absent RADIATION DOSE DELIVERED: 1,942.15mGy.cm Total DLP DATA REPOSITORY: All CT scans at this facility are submitted to the National Radiology Data Registry (NRDR) Dose Index Registry (DIR) with the [employer] (A[employer]). RADIATION OPTIMIZATION: All CT scans at this facility use at least one of these dose optimization te chniques: automated exposure control; mA and/or kV adjustment per patient size (includes targeted exa ms where dose is matched to clinical indication); or iterative reconstruction.
== END ==
LOC: DI 04:28
PROVIDERS: PCP Internal Medicine; Visit Provider Internal Medicine
DX: K86.9 Disease of pancreas, unspecified (principal)
CPT/HCPCS: 74178; 82565

== ENCOUNTER → 2023-09-30 04:24 | Outpatient (CLI) | payer MEDICARE, SELFPAY ==
--- NOTE | 2023-09-30 | DI.MRI_ITS ---
Exam(s) MR ABDOMEN WO/W EXAM: MR ABDOMEN WO/W CLINICAL HISTORY: DISORDER/DISEASE PANCREAS, K86.9, TECHNIQUE: Multiplanar multisequence MRI of the Abdomen was performed. CONTRAST MATERIAL: IV Contrast: 20 mL of Dotarem contrast administered. COMPARISON: CT CT ABD WO/ABD PEL W from 09/11/2023 FINDINGS: There is patient motion artifact. Liver: There are 2 small simple cysts in the liver. The larger measures 0.9 cm. No suspicious hepat ic masses are seen. Pancreas: There are 2 cysts seen in the tail of the pancreas. The larger measures 1.2 cm. The small er measures 5 mm. There are cysts seen in the head and uncinate process of the pancreas. The larges t cyst in the uncinate process measures 2.2 x 2 cm. The largest cyst in the head of the pancreas elyse sures 1.7 x 1.8 cm. There is again seen a large calcification in the head of the pancreas. Gallbladder and Bile Ducts: Status post cholecystectomy. No significant biliary ductal dilatation. Adrenals: Unremarkable. Kidneys: Bilateral simple renal cysts. The largest is in the left kidney and measures 1.3 x 2.2 cm. No follow-up is recommended. Spleen: Unremarkable. Bowel: Unremarkable. Aorta: Unremarkable. Soft Tissues: Unremarkable. Bone: Multilevel degenerative changes in the lumbar spine. The findings do result in marked central spinal canal stenosis at L5-S1 and moderate central spinal canal stenosis at L4-L5. Lymph Nodes: Unremarkable. IMPRESSION: 1. Nonenhancing pancreatic cysts. The largest is in the uncinate process and measures 2.2 x 2 cm. N o evidence of a pancreatic enhancing mass. Follow-up examination in 2 years is recommended (Lui et al 2017). 2. Simple benign-appearing hepatic and renal cysts. No follow-up is recommended. 3. Degenerative changes in the lumbar spine resulting in central spinal canal stenosis at L4-5 and L5 -S1. Follow-up as clinically appropriate. DATA REPOSITORY:
[2023-09-30] MEDS: Gadoterate meglumine 20 ML VIAL IVP (09:10)
[2023-09-30] MEDS: Normal Saline - Diluent 50 ML VIAL IJ (09:10)
== END ==
LOC: DI 04:26
PROVIDERS: PCP Internal Medicine; Visit Provider Internal Medicine
DX: K86.89 Other specified diseases of pancreas (principal); M51.36 Other intervertebral disc degeneration, lumbar region
CPT/HCPCS: 74183

== ENCOUNTER 2024-03-29 10:18 | Outpatient (CLI) | payer MEDICARE, SELFPAY ==
[2024-03-31 10:43] LABS: PSA, Ultrasensitive 1.5 ng/mL (<= 4.5)
[2024-04-02 06:22] LABS: Testosterone, Total 62 ng/dL (240-950)
== END 2024-03-29 10:19 | disposition home or self-care (01) ==
LOC: LBO 10:19
PROVIDERS: PCP Internal Medicine; Visit Provider Radiology Radiation Oncology
DX: C61 Malignant neoplasm of prostate (principal)
CPT/HCPCS: 36415; 84153; 84403

== ENCOUNTER 2024-06-07 10:35 | Outpatient (CLI) | payer MEDICARE, SELFPAY ==
--- NOTE | 2024-06-07 10:34 | DI.RAD_ITS ---
Exam(s) XR CHEST 2V PA LATERAL EXAM: XR CHEST 2V PA LATERAL CLINICAL HISTORY: eval pna R05.9 Cough TECHNIQUE: 2D digital imaging was performed of the chest. Two images were obtained. PA and lateral views were obtained. COMPARISON: CR CHEST 2 VIEWS PA,LAT from 05/30/2014 CR XR CHEST 2V PA LATERAL from 11/08/2020 CR XR CHEST 2V PA LATERAL from 10/15/2022 FINDINGS: MEDIASTINUM: Normal. HEART: Normal. PULMONARY VASCULATURE: Normal. LUNGS: There again seen increased linear markings in the left lung base consistent with scarring. No definite focal consolidating infiltrates are seen on the PA and lateral views. PLEURAL SPACE: No pleural effusion or pneumothorax. BONE:Within normal limits for the patient's age. OTHER FINDINGS:Normal. IMPRESSION: No acute pulmonary findings. DATA REPOSITORY: RADIATION DOSE DELIVERED:
== END 2024-06-07 10:55 ==
LOC: DI 10:35
PROVIDERS: PCP Internal Medicine; Visit Provider Nurse Practitioner Family
DX: R05.9 Cough, unspecified (principal)
CPT/HCPCS: 71046

== ENCOUNTER 2024-09-16 03:10 | Outpatient (CLI) | payer MEDICARE, SELFPAY ==
[2024-09-18 10:26] LABS: PSA, Ultrasensitive 1.4 ng/mL (<= 4.5)
[2024-09-21 16:48] LABS: Testosterone, Total 127 ng/dL (240-950)
== END 2024-09-16 03:11 | disposition home or self-care (01) ==
LOC: LBO 03:10
PROVIDERS: PCP Internal Medicine; Visit Provider Radiology Radiation Oncology
DX: C61 Malignant neoplasm of prostate (principal)
CPT/HCPCS: 36415; 84153; 84403

== ENCOUNTER → 2025-02-03 13:42 | Outpatient (BNVA) | payer MEDICARE, SELFPAY | PROVIDERS: PCP Internal Medicine; Referring Provider Internal Medicine; Visit Provider Physical Therapy Assistant | DX: Z12.11 Encounter for screening for malignant neoplasm of colon (principal); Z86.0109 Personal history of other colon polyps; Z86.0101 Personal history of adenomatous and serrated colon polyps | CPT/HCPCS: S0285 ==

== ENCOUNTER 2025-02-25 10:23 | Day surgery (SDC) | payer MEDICARE, SELFPAY ==
--- NOTE | 2025-02-24 19:19 | W.PM.DSUDISC ---
Date of service: 02/25/25 Discharge Plan Disposition Patient Disposition: Home Condition: Good Discharge Details Reason For Visit: screening colonoscopy Attending Provider: Subhash Otero Primary Care Provider: Ty Lynn Home Meds and New Rx's Prescriptions: Continued Ozempic 2 mg/dose (8 mg/3 mL) pen injector 2 mg subcut QWEEK sildenafil [Viagra] 50 MG tablet 100 mg PO PRN PRN nitroglycerin 0.4 MG tablet, sublingual 0.4 mg Sublingual PRN PRN Patient Comments: no longer has rosuvastatin [Crestor] 10 MG tablet 40 mg PO DAILY Qty: 30 amlodipine 10 mg tablet 10 mg PO DAILY metformin 850 mg tablet 850 mg PO BID hydrocodone-acetaminophen 10-325 mg tablet 1 tab PO TID PRN Rx Instructions: for sciatic pain clopidogrel [Plavix] 75 mg tablet 75 mg PO DAILY gabapentin 300 mg capsule 900 mg PO TID carvedilol 6.25 mg tablet 6.25 mg PO BID Rx Instructions: must administer with a meal/food insulin degludec [Tresiba FlexTouch U-200] 200 unit/mL (3 mL) insulin pen 20 unit subcut DAILY losartan 100 mg Tablet 100 mg PO DAILY chlorthalidone 25 mg tablet 50 mg PO DAILY Discontinued bisacodyl [Dulcolax (bisacodyl)] 5 mg tablet,delayed release (DR/EC) 5 mg PO ONCE Qty: 4 0RF Rx Instructions: Take per colonoscopy instructions provided by ordering providers office polyethylene glycol 3350 17 gram/dose powder 17 g PO ONCE Qty: 238 0RF Rx Instructions: Take per colonoscopy instructions provided by ordering providers office Discharge Instructions Additional Instructions: Rich, was good to see you again today, and I hope you feel well after the procedure. I did find 2 large polyps again today, and although I was able to remove 1 of these, the other 1 is incompletely resected. However, I was able to remove a significant portion of it so we should get an appropriate pathologic diagnosis. I found 2 other polyps that were quite small, and I removed these completely. Similar to your previous experience, we will see what the pathology report shows in the next week or 2. I will call you as soon as I get the results, we can make a definitive plan regarding how to deal with the remaining portion of polyp. If you need anything at all, please do not hesitate to call me at any point. 1. If tolerated, consume a soft, low fiber diet for 1-2 days. 2[address] Do not drive, drink alcohol, operate machinery, make critical decisions, or do activities that require coordination or balance for 24 hours. 3. Because air was put into your colon during the procedure, expelling air from your rectum (passing gas or farting) is normal. 4. You may not have a bowel movement for 1-3 days because of the colonoscopy prep. This is normal. 5. Go directly to the emergency room if you notice any of the following: Develop chills (warm to touch), or if you have a thermometer and your temperature is above 101 Difficulty breathing or difficultly swallowing Persistent vomiting Severe abdominal pain, other than gas cramps Severe chest pain Black, tarry stools Any bleeding – exceeding one tablespoon 6. Call your physician if the site where your intravenous was started becomes red, swollen, painful, and warm to touch. 7. Your physician has reviewed your pre-procedure medications. Please continue to take those medications as previously ordered. You will be given specific information/education regarding any changes to your medications before leaving. Stand Alone Forms: Anesthesia Discharge Inst., Melly Aiken (DSU), Portal Information Activity:: Activity as Tolerated Diet:: As Tolerated Discharge Orders Discharge Orders: Discharge Order (Routine); Ordered 02/24/25 Ordered By: Subhash Otero DS: Diagnosis Discharge Diagnosis (1) Encounter for screening colonoscopy: Status: Acute Asessment and Plan: Follow-up on polypectomy results
--- NOTE | 2025-02-24 19:21 | COLE_ITS ---
Date of service: 02/25/25 Time of Service: 13:31 Colonoscopy Report Date of procedure: 02/25/25 Pre-op diagnosis general: screening colonoscopy Post-op diagnosis procedure note: other (Colon polyps, proctitis) Procedure: colonoscopy Surgeon: Subhash Otero Anesthesia Type: General:No Airway Estimated blood loss (mL): 10 Pathology: other (1 cm cecal polyp, 2 cm ascending colon polyp, 0.25 cm flat polyps at 20 cm x 2) Complications: None Disposition: same day Indications: Rich is a 69 year old man with a history of adenomatous poylps. He needs his next screening colonoscopy Prep: Miralax/Dulcolax Procedure Start Time: 12:13 Procedure End Time: 13:14 Retraction Time: 7 Findings: Mild proctitis; 1 cm cecal polyp, 2 cm ascending colon polyp, 0.25 cm flat polyps at 20 cm x 2 Procedure Description: After the induction of anesthesia, and with Rich in left lateral decubitus position, I began by performing an external anorectal exam. Perineum and skin were normal, as was the anal verge. There was no evidence of external h emorrhoids. Next, I performed a digital rectal exam. I did not appreciate any abnormal findings. Next, I advanced a colonoscope into the rectal vault. I performed retroflexion. 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 Using irrigation, I then advanced the colonoscope beyond the rectal folds and into the sigmoid colon before advancing towards the cecum. While progressing down the ascending colon, I did encounter a large polyp. Mucosa is not particularly friable. Despite several attempts at resection, I was only able to remove a portion of this in piecemeal with a energize snare polypectomy. I would estimate the size of this polyp to be greater than 2 cm in its greatest dimension. I believe we have adequate sample for pathologic diagnosis. Given the nature of his previous polyps, and the size of this, I did mehrdad it with a submucosal tattoo. I continued down towards the base of the cecum.. The scope was noted to be in the cecum by identification of the ileocecal valve and appendiceal orifice. I then began withdrawing the colonoscope using repeated irrigation as necessary for full evaluation of the colonic mucosa. Within the cecum was another polyp. This was about 1 cm and pedunculated. This was removed completely with a energize snare polypectomy. 2 other polyps were found at 20 cm past the anal v erge. Each of these was less than 0.25 cm. Each of these polyps was flat, and I removed both of these polyps with cold forceps without incident. These were sent as a single specimen. There is minimal bleeding from the sites once the scope was withdrawn to the level of the rectum, great care was taken to examine portions of the rectal folds. Finally, the scope was withdrawn and the patient was brought to the same-day surgery recovery unit as the anesthetic wore off. The findings and instructions were shared with the patient prior to discharge. Madison Bowel Prep Madison Bowel Prep Right Colon: 2 Left Colon: 2 Transverse Colon: 2 Total Score: 6
[2025-02-25] VITALS (12 sets, daily range): BP systolic 113–134; BP diastolic 62–79; PULSE 72–80; RESP 16–27; TEMP 36.3–36.6; O2SAT 93–99; BMI 30.7
--- NOTE | 2025-02-25 10:58 | ANES.PREOP_ITS ---
General Info Date of Service Date Performed: 02/25/25 Height: 6 ft Weight: 102.965 kg Body Mass Index (BMI): 30.7 Surgical Procedure: Operation Date: 02/25/25 12:05 Proposed Procedure Side Surgeon hillary Otero MD Meds Allergies and Home Medications Allergies Allergy/AdvReac Type Severity Reaction Status Date / Time niacin Allergy Unknown Hives Verified 02/25/25 10:52 Home Medication Medication Instructions Recorded nitroglycerin 0.4 mg sublingual 0.4 mg sublingual PRN PRN 12/13/13 tablet sildenafil 50 mg tablet (Viagra) 100 mg PO PRN PRN rosuvastatin 10 mg tablet (Crestor) 40 mg PO DAILY #30 tabs 10/09/16 amlodipine 10 mg tablet 10 mg PO DAILY 04/01/18 losartan 100 mg tablet 100 mg PO DAILY 11/08/20 metformin 850 mg tablet 850 mg PO BID 04/24/21 hydrocodone 10 mg-acetaminophen 1 tab PO TID PRN 02/13 325 mg tablet chlorthalidone 25 mg tablet 50 mg PO DAILY 02/20/23 semaglutide 2 mg/dose (8 mg/3 mL) 2 mg subcut QWEEK subcutaneous pen injector (Ozempic) clopidogrel 75 mg tablet (Plavix) 75 mg PO DAILY 10/04 gabapentin 300 mg capsule 900 mg PO TID 10/04/24 carvedilol 6.25 mg tablet 6.25 mg PO BID 02/11/25 insulin degludec 200 unit/mL (3 20 unit subcut DAILY 1 2425 mL) subcutaneous pen (Tresiba FlexTouch U-200 insulin) Current Visit Medications: Current Medications Generic Name Dose Route Start Last Admin Trade Name Freq PRN Reason Stop Dose Admin Ringer's Solution 1,000 mls @ 80 mls/hr 02/25/25 06:00 IV 02/25/25 23:59 [facility]ION [facility] IV Miscellaneous Supplies 1 each 02/25/25 06:00 Iv Access IV 02/25/25 23:59 DIRECTED YUNI Sodium Chloride 0 ml 02/25/25 06:00 Normal Saline Flush 10 Ml Syr IV 02/25/25 23:59 PRN PRN Sodium Chloride 0 ml 02/25/25 06:00 Normal Saline 10 Ml Vial IJ 02/25/25 23:59 DIRECTED PRN Sterile Water 0 ml 02/25/25 06:00 Water,Injection,Sterile 10 Ml Vial IJ 02/25/25 23:59 DIRECTED PRN PFSH Active Problems Active Problems: Problem Status Onset Code Encounter for screening colonoscopy Acute Z12.11 Prostate cancer Chronic C61 Screen for colon cancer Acute Z12.11 Rising PSA level Acute R97.20 Diabetes mellitus Chronic E11.9 Chest pain Acute R07.9 CAD (coronary artery disease) Chronic I25.10 Scalp cyst Acute L72.9 Scalp mass Acute R22.0 Medical History Medical History Sessile serrated polyp of colon (~02/2023) Tubular adenoma (~02/2023) Hyperplastic polyp of large intestine (~02/2023) BPH loc w urin obs/LUTS Cervical radiculopathy PAD (peripheral artery disease) Unstable angina Pt. states it was gas Lumbago with sciatica, left side Erectile dysfunction Diabetic neuropathy HLD (hyperlipidemia) HTN (hypertension) Medical History Comments:: Last seen by cardiology 04/2021 for regular f/u Surgical History Surgical History History of colonoscopy (~02/2023) S/P femoral-popliteal bypass surgery S/P right rotator cuff repair History of cholecystectomy Hx of endarterectomy (~1998) left common femoral H/O heart artery stent (~05/2016) MATTHEW to RCA x [place] [facility] [place] Tobacco Smoking/Tobacco Use Status: Former Tobacco Use Alcohol Alcohol Intake: never Substance Use Substance use: Socially Substance use type: marijuana Details: Vape Imaging and Studies Imaging and Studies Study information below may be from another EMR and interpreted by another provider. Please see original notes in EMR for more complete details. EKG Summary: 10/2020: sinus. OK >220 ms Stress Test Summary: 03/2019: 9.5 METS, no evidence of ischemia on ECG. No evidence of ischemia on imaging. Echocardiogram Summary: 10/2020: LVEF 55%, no WMA. normal RvFxn, PAS 19 mmhg. no significant valve disease. Cardiac Catheterization Summary: 01/2021: left circ 50% stenosis. Anesthesia Assessment and Plan Anesthesia History Personal History: No History of Anesthesia Complications Family History: No Family History of Anesthesia Complications Exercise Tolerance Exercise Tolerance: Metabolic Equivalents>4 Pertinent Negatives Pertinent Negatives: No Symptoms of GERD, No Major Cardiovascular Symptoms or Complaints and No Major Pulmonary Symptoms or Complaints Cardiac & Pulmonary Exam Cardiac Exam: Normal S1/S2 Heart Sounds Pulmonary Exam: Clear Bilateral Breath Sounds (Diminshed on the right) Implantable Cardiac Device Does patient have a Pacemaker or an ICD?: No Airway Exam Known Difficult Airway: No Mallampati Class: 1 Mouth Opening: Normal (> 3cm) Thyromental Distance: Greater than 3 cm Neck Range of Motion: Full ROM Neck Circumference: Thick Teeth Condition: Removable Dentures/Plates Upper and Edentulous ASA Classification ASA Score: ASA 3 Emergency Case?: No NPO Status NPO Status: NPO Clears >2 hours, Solids >8 hours Anesthesia Plan Resuscitation Status: Full Code Anesthesia Technique: General Anesthesia Airway Planned: Natural Airway Monitors Used: Standard Monitors Preoperative Comments:: Required USG PIV placement. Noted smooth muscle of vessel very reactive and clamped on catheter. Allowed time to relax and was able to advance catheter.
[2025-02-25] MEDS: Lactated Ringers 1,000 ML 80 ML IV (11:35)
--- NOTE | 2025-02-25 12:45 | BOWEL_PTH ---
PATIENT: Rich Otero LOC: [facility] U#:[id number] AGE/SX: 69/M ROOM: RE02/25/[address]: Subhash Otero MD : [id number] BED: DIS: 02/25/2025 SPEC #: [id number] RECD: 02/25/25 15:38 STATUS: MARTINEZ RE #: [id number] DAVID: 02/25/25 12:[address]: Subhash Otero DEPT: Surgical Specimen RECD BY: Ema Joel ENTERED: 02/25/25 15:39 SP TYPE: Bowel OTHR DR: Ty Lynn Tissues: 1 - BIOPSY BOWEL 2 - BIOPSY BOWEL 3 - BIOPSY BOWEL Procedures: GROSS AND MICRO LEVEL 4 Comments: [id number]
[2025-02-25] MEDS: Endoscopic Tattoo 5 ML SYR IJ (13:01)
--- NOTE | 2025-02-25 13:48 | W.ANESPOSTOP ---
Postoperative Evaluation Date, Time and Location Date Performed: 02/25/25 Time Performed: 13:48 Patient Location: PACU Vital Signs Most Recent Imported Vital Signs: Most Recent Vital Signs Temp Pulse Resp BP Pulse Ox 36.6 C 73 20 121/65 94 02/25/25 13:31 02/25/25 13:31 02/25/25 13:31 02/25/25 13:31 02/25/25 13:31 Assessment Mental Status: Arousable with meaningful communication Airway and Respiratory Function: Patent airway with normal (patient baseline) respiratory exam Cardiovascular Function: Hemodynamically Stable Hydration Status: Adequately Hydrated Nausea & Vomiting: No Nausea or Vomiting Pain: Pt. Denies Any Pain Peripheral Nerve Block: Patient did not receive a nerve block Postoperative Comments:: Significant secretions during case with significant oxygen need. We proceeded to PACU postop for observation. Patient did well. I did caution him twice that he is not to geller this afternoon. I also mentioned since his right lung was considerable more distant initially that he work on deep breathing and coughing. He is more than welcome to bring this up to his PCP on his next appointment (especially in relation to his home SPO2 monitor sometimes reading 88-89%.
== END 2025-02-25 14:19 | disposition home or self-care (01) ==
LOC: SUR 10:24
PROVIDERS: PCP Internal Medicine; Visit Provider Surgery
PROC: 0DJD8ZZ Inspection of Lower Intestinal Tract, Via Natural or Artificial Opening Endoscopic (ICD-10-PCS; CPT 45378; principal; 2025-02-25 12:00)
DX: Z12.11 Encounter for screening for malignant neoplasm of colon (principal); D37.4 Neoplasm of uncertain behavior of colon; K62.89 Other specified diseases of anus and rectum; D12.0 Benign neoplasm of cecum
CPT/HCPCS: 45385; 45381; 45380; 88305; J2704

== ENCOUNTER → 2025-03-10 09:45 | Outpatient (CLI) | payer MEDICARE, SELFPAY ==
--- NOTE | 2025-03-10 09:45 | DI.RAD_ITS ---
Exam(s) XR CHEST 2V PA LATERAL EXAM: XR CHEST 2V PA LATERAL CLINICAL HISTORY: cough, r/o pneumonia, R05.9 TECHNIQUE: 2D digital imaging was performed. Two views. COMPARISON: CT CT ABD WO/ABD PEL W from 09/11/2023 CR XR CHEST 2V PA LATERAL from 06/07/2024 FINDINGS: HEART: Normal size. Aorta: Not dilated. PULMONARY VASCULATURE: Normal. MEDIASTINUM: Unremarkable. LUNGS: Mild basilar scarring. No evidence of infiltrate. PLEURAL SPACE: No pleural effusion or pneumothorax. BONE:Unremarkable for age. SOFT TISSUES: Unremarkable. IMPRESSION: No acute abnormality. DATA REPOSITORY: RADIATION DOSE DELIVERED:
== END ==
LOC: DI 09:45
PROVIDERS: PCP Internal Medicine; Visit Provider Physician Assistant
DX: R05.9 Cough, unspecified (principal)
CPT/HCPCS: 71046

== ENCOUNTER 2025-03-14 13:59 | Outpatient (REF) | payer MEDICARE, SELFPAY ==
[2025-03-14 19:54] LABS: ALT 26 U/L (10-49); Anion Gap 9.1 mmol/L (3-11); BUN 25 mg/dL (9-23); CO2 25.1 mmol/L (20.0-31.0); Calcium 9.5 mg/dL (8.3-10.6); Chloride 99 mmol/L (98-107); Cholesterol 99 mg/dL (<200); Glucose 108 mg/dL (74-106); HDL Cholesterol 23 mg/dL (>40); Potassium 3.3 mmol/L (3.5-5.1); Sodium 133 mmol/L (136-145)
[2025-03-14 20:09] LABS: Creatine Kinase 334 U/L (46-171)
[2025-03-14 20:11] LABS: Microalb ug/mg Crea 68.6 ug/mg Cr
[2025-03-15 19:46] LABS: PSA, Diagnostic 0.9 ng/mL (<=4.5)
== END 2025-03-14 14:00 | disposition home or self-care (01) ==
LOC: NCHCN 13:59
PROVIDERS: PCP Internal Medicine; Visit Provider Internal Medicine
DX: E11.51 Type 2 diabetes mellitus with diabetic peripheral angiopathy without gangrene (principal); Z79.4 Long term (current) use of insulin; I10 Essential (primary) hypertension; C61 Malignant neoplasm of prostate
CPT/HCPCS: 80048; 80061; 82550; 82043; 82570; 84153; 84460